=== PATIENT | male | born 1955 | race Caucasian/White ===

== ENCOUNTER 2023-06-02 20:24 | Emergency (ER) | payer MEDICARE, BC, SELFPAY ==
[2023-06-02 20:41] VITALS: BP 135/71; PULSE 66; RESP 26; TEMP 36.6; O2SAT 92; BMI 44.9
--- NOTE | 2023-06-02 21:05 | ED_ITS ---
HPI - Fall General Time Seen by Provider: 21:05 Date Seen: 06/02/23 Chief Complaint: Fall/Minor Trauma Stated Complaint: fell, R leg pain,and hip pain Time Seen by Provider: 06/02/23 20:29 Source: patient and RN notes reviewed Mode of arrival: ambulatory Limitations: no limitations History of Present Illness HPI Narrative: This 67-year-old male is coming into the ER with complaint of right leg pain after a fall down the stairs. Was going down carpeted stairs, slipped, did hit the cui and eventually landed with his right foot underneath his but, he has pain in the thigh area. He did not hit his head, no loss of consciousness. Denies any neck or back pain. He has pain in the right buttock area that does go into the thigh, has a burning-type pain above his right knee. He does feel pain in the hip area as well. Denies any numbness tingling. Has no pain in this extremity below his right knee. Denies any difficulty breathing, no chest or chest wall pain, no abdominal pain. He is not on any blood thinners. He crawled back up the stairs himself. He called to his , she called their son to help get him up. He does state he can put a little weight on the right leg. He denies any other medical reason for the fall, simply slipped on the carpeted stairs. He does not remember medications but is sure he is not on blood thinners. complaint: fall Related Data Home Medications Medication Instructions Recorded Confirmed Unobtainable 06/02/23 06/02/23 Allergies Allergy/AdvReac Type Severity Reaction Status Date / Time animal dander Allergy Intermediate Congested Verified 06/02/23 20:41 Review of Systems Status of ROS: Reports: 6 or more systems reviewed and unremarkable except as noted in History and below [facility] Social History Smoking Status: Never smoker How often do you have a drink containing alcohol: 4 or more times a week How many standard drinks containing alcohol do you have on a typical day: 1 or 2 How often do you have six or more drinks on one occasion: Never AUDIT-C Alcohol total score: 4 Non-prescribed substance use: denies use Exam Const: Vital Signs, click to edit/add: Vital Signs - 24 hr 06/02/23 20:41 Temperature 97.9 F Pulse Rate [Pulse Oximeter] 66 Respiratory Rate 26 H Blood Pressure [Ri t Upper Arm] 135/71 Pulse Oximetry 92 Oxygen Delivery Me thod Room Air 67-year-old male sitting on the edge of the bed in exam room 6, somewhat leaning with his upper body on the back of the bed. He is alert, interactive, no apparent distress. Pupils are equal round, conjugate gaze. He has slightly injected sclera but extra ocular muscles are intact. He has symmetrical facial function, normal speech. He has no palpable tenderness or visual changes on of midline cervical spine down to lumbar spine. He does not have any abrasions or traumatic change on his back. Lungs are clear, good air entry, no wheezing or crackles. CV regular rate and rhythm, no murmur, normal S1-S2 no S3-S4. Abdomen is obese but soft, does not seem to be tender. He can very slightly lift his right lower leg some, uses his left foot to start the movement, can lift it maybe 5-10 degrees at most. When I lift his leg, am able to fully place it in extension, he cannot hold it up at all. His patella still seems to be in normal position, is certainly not high riding, patellar tendon still can be felt inferiorly. He does seem to have significant effusion above the patella, do wonder if he has some of the muscle fibers still intact as is patella really does seem to be in appropriate anatomic position but there is significant suprapatellar effusion. He does not seem to have tenderness over his joint line. Does complain of some pain with rotation of his hip. Documenting provider has reviewed patient's vital signs: yes Course Course ED Course: Will obtain imaging of his pelvis, right hip femur and knee. I suspect quadriceps injury here. His patellar tendon seems to be intact, feel significant effusion above the patella on examination. He can make some slight extension but cannot hold the leg or lift the leg up really. Will look to ensure no underlying fracture. Have reviewed with them if this is a quadriceps disruption, patient would be discharged to home in knee immobilization and orthopedic outpatient follow-up. They understand that further imaging with MRI might be ordered. Would recommend that he ambulate with a walker. Will await imaging results, he will let me know there are further issues or anything else is starting to bother him. Reevaluation(s) Time of Reevaluation #1: 22:37 Reevaluation #1: Reviewed negative x-rays for fracture. Note sterile instrument technician did request to change to femur and pelvis which was agreed to. Patient most definitely has a suprapatellar effusion, patella on the right maybe just slightly lower riding when I compare it to his left on re-evaluation. He has no other new complaints at this time. Reviewed management, probable quadriceps disruption. They will be able to get a walker for him to use. We will apply a knee mobilizer at this time. Vital Signs Vital signs: Initial Vital Signs Temperature 97.9 F 06/02/23 20:41 Temperature Source Temporal Artery Scan 06/02/23 20:41 Pulse Rate 66 06/02/23 20:41 Respiratory Rate 26 H 06/02/23 20:41 Blood Pressure 135/71 06/02/23 20:41 Blood Pressure Mean 92 06/02/23 20:41 Blood Pressure Position Sitting 06/02/23 20:41 Pulse Oximetry 92 06/02/23 20:41 Oxygen Delivery Method Room Air 06/02/23 20:41 Vital Signs Temperature 97.9 F 06/02/23 20:41 Pulse Rate 66 06/02/23 20:41 Respiratory Rate 26 H 06/02/23 20:41 Blood Pressure 135/71 06/02/23 20:41 Pulse Oximetry 92 06/02/23 20:41 Oxygen Delivery Method Room Air 06/02/23 20:41 Temperature 97.9 F 06/02/23 20:41 Pulse Rate 66 06/02/23 20:41 Respiratory Rate 26 H 06/02/23 20:41 Blood Pressure 135/71 06/02/23 20:41 Pulse Oximetry 92 06/02/23 20:41 Oxygen Delivery Method Room Air 06/02/23 20:41 MDM - Fall Imaging Data XR pelvis: Attestation: I have reviewed the pertinent imaging results. Radiologist's impression: Patient: LAYLA ARNOLDMarisol Facility:?[facility] Patient ID:?[id number] Site Patient ID:?[id number]. Site :?1955 Study:?XRay Pelvis -06/02/2023 10:03:03 PM Ordering Physician:Amado Donovan Final Report: INDICATION: Fall, pelvic pain TECHNIQUE: Pelvis radiograph 1 view COMPARISON: None FINDINGS: Bone: No acute fractures or aggressive bone lesions are identified. 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 There is a linear lucency overlying the right superior pubic ramus which is likely a soft tissue Mach band. Joint: See above. The visualized sacroiliac joints are unremarkable in appearance. The pubic symphysis is normal in appearance. Soft tissue: Unremarkable. The visualized bowel gas pattern of the pelvis is unremarkable in appearance. No radiopaque foreign bodies are seen. IMPRESSION: 1. No acute osseous injuries or abnormalities are noted. Dictated by Antione Younger MD @ 06/02/2023 10:12:55 PM Dictated by: Antione Younger MD @ 06/02/2023 22:13:00 (Electronic Signature) XR femur: Attestation: I have reviewed the pertinent imaging results. Radiologist's impression: Patient: LAYLA BATISTA Facility:?[facility] Patient ID:?[id number] Site Patient ID:?[id number]. Site :?1955 Study:?XRay Extremity Right FEMUR-06/02/2023 10:03:26 PM Ordering Physician:?Ariel Donovan Final Report: INDICATION: Fall, femur pain TECHNIQUE: Femur radiograph 4 views right COMPARISON: None FINDINGS: Bone: No acute fractures or aggressive bone lesions are identified. There is a prominent osseous bulge at the anterolateral femoral head-neck junction. Joint: Moderate right hip osteoarthritis is noted. No significant joint effusion is seen. Soft tissue: Overlying fabric artifacts moderately degrade the evaluation of the soft tissues and osseous structures. Soft tissue thickening and edema seen anteriorly. There are several densities in the anterior soft tissues measuring 4-6 mm which may represent calcifications. IMPRESSIONS: 1. No acute osseous injuries or abnormalities are noted. 2. There is a prominent osseous bulge at the anterolateral femoral head-neck junction. This can predispose the patient to CAM-type femoroacetabular impingement. 3. There are several densities in the anterior soft tissues measuring 4-6 mm which may represent calcifications. Correlation with physical exam and history of trauma is recommended to exclude foreign bodies. Dictated by Antione Younger MD @ 06/02/2023 10:14:51 PM Dictated by: Antione Younger MD @ 06/02/2023 22:14:54 (Electronic Signature) Discharge Plan Discharge Clinical Impression: Injury of quadriceps muscle Fall Qualifiers: Encounter type: initial encounter Qualified Code(s): W19.XXXA - Unspecified fall, initial encounter Patient Disposition: Home, Self-Care Condition: Stable Instructions: Tendon Rupture (ED) Additional Instructions: Need to keep knee immobilizer on for stability. Use walker to ambulate. Can use Tylenol and ibuprofen per bottle directions if needed for any discomfort. Need to contact Orthopedic office tomorrow to get scheduled for follow-up, phone number is [phone]. When resting, can open up the knee immobilizer to apply ice. Prescriptions: No Action Unobtainable Follow Up/Referrals: Provider,Not a Local [Primary Care Provider] - Stand Alone Forms: [employer] Info Instructions
--- NOTE | 2023-06-02 21:11 | CRLHL7_ITS ---
For Patients: As a result of the Cures Act, medical imaging exams and procedure reports are released immediately into your electronic medical record. You may view this report before your referring provider. If you have questions, please contact your health care provider. INDICATION: Fall, femur pain TECHNIQUE: Femur radiograph 4 views right COMPARISON: None FINDINGS: Bone: No acute fractures or aggressive bone lesions are identified. There is a prominent osseous bulge at the anterolateral femoral head-neck junction. Joint: Moderate right hip osteoarthritis is noted. No significant joint effusion is seen. Soft tissue: Overlying fabric artifacts moderately degrade the evaluation of the soft tissues and osseous structures. Soft tissue thickening and edema seen anteriorly. There are several densities in the anterior soft tissues measuring 4-6 mm which may represent calcifications. IMPRESSIONS: 1. No acute osseous injuries or abnormalities are noted. 2. There is a prominent osseous bulge at the anterolateral femoral head-neck junction. This can predispose the patient to CAM-type femoroacetabular impingement. 3. There are several densities in the anterior soft tissues measuring 4-6 mm which may represent calcifications. Correlation with physical exam and history of trauma is recommended to exclude foreign bodies. Dictated by Antione Younger MD @ 06/02/2023 10:14:51 PM Dictated by: Antione Younger MD @ 06/02/2023 22:14:54 (Electronically Signed)
--- NOTE | 2023-06-02 21:11 | CRLHL7_ITS ---
For Patients: As a result of the Century Cures Act, medical imaging exams and procedure reports are released immediately into your electronic medical record. You may view this report before your referring provider. If you have questions, please contact your health care provider. INDICATION: Fall, pelvic pain TECHNIQUE: Pelvis radiograph 1 view COMPARISON: None FINDINGS: Bone: No acute fractures or aggressive bone lesions are identified. 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 There is a linear lucency overlying the right superior pubic ramus which is likely a soft tissue Mach band. Joint: See above. The visualized sacroiliac joints are unremarkable in appearance. The pubic symphysis is normal in appearance. Soft tissue: Unremarkable. The visualized bowel gas pattern of the pelvis is unremarkable in appearance. No radiopaque foreign bodies are seen. IMPRESSION: 1. No acute osseous injuries or abnormalities are noted. Dictated by Antione Younger MD @ 06/02/2023 10:12:55 PM Dictated by: Antione Younger MD @ 06/02/2023 22:13:00 (Electronically Signed)
== END 2023-06-02 22:55 | disposition home or self-care (01) ==
PROVIDERS: Emergency Provider Family Medicine
DX: S76.101A Unspecified injury of right quadriceps muscle, fascia and tendon, initial encounter (principal); W19.XXXA Unspecified fall, initial encounter
CPT/HCPCS: 29505; 72170; 73552; 99284

== ENCOUNTER 2023-06-04 09:00 | Outpatient (CLI) | payer MEDICARE, BC, SELFPAY ==
--- NOTE | 2023-06-04 09:15 | MR_ITS ---
[address] [address] Phone:?[phone] Fax:?[phone] Referring Physician Information: Paramjit Sarah M.D. [id number] [facility] [id number] Phone:?[phone] Fax:?[phone] Patient:Georgiana Toddmelquiadesmariola MarionB:?1955 Sex:?Male Phone:?[phone] [facility] MRN:?[id number] Exam Date:?06/04/2023 EXAM: MRI of the RIGHT KNEE, without contrast CLINICAL INFORMATION: Male, 67 years old, with knee pain after fall injury 06/02/2023 INDICATION: Knee pain PRIOR SURGERY: None reported. PLAIN FILMS: Radiographs 06/02/2023. COMPARISONS: No prior MRIs available. TECHNICAL INFORMATION: Using a 1.5T MR scanner and a localizing surface coil: sagittals: PD, PDFS coronals: PD, T2FS axials: PD, PDFS SEDATION: None CONTRAST: None FINDINGS: Knee joint: Effusion: Small right knee effusion. Popliteal cyst: Small Loose bodies: None. Subcutaneous and extra-articular soft tissues: Prominent prepatellar subcutaneous soft tissue edema and skin thickening with mild discrete bursitis at the level of the inferior pole of the patella measuring up to 8 mm in thickness. Ligaments: ACL: Intact ACL anteromedial and posterolateral bundles, without sprain or tear. PCL: Intact PCL, without acute or chronic injury. MCL: Intact MCL superficial and deep layers, without injury. LCL: Intact LCL, without injury. Posterolateral corner: No posterolateral corner soft tissue injury. Popliteus, biceps femoris, iliotibial band, popliteofibular ligament and lateral gastrocnemius are intact. Posteromedial corner: No posteromedial corner soft tissue injury. Semimembranosus, pes anserine tendons and posterior oblique ligament are without injury, tendinopathy or bursitis. Extensor mechanism: Patellar tendon: Intact, without tendinopathy. Quadriceps tendon: The quadriceps tendon is abnormal in appearance. There is full-thickness tearing involving the rectus femoris, vastus intermedius, vastus medialis contributions to the tendon with up to 2.3 cm retraction (sagittal series 5 image 14, coronal series 7 image 5, and axial series 4 image 9). The vastus lateralis component appears at least predominantly intact at the attachment. The distal region of tearing appears at the patellar attachment without significant distal tendon stump visualized. Tearing results in extension of intra-articular fluid into the subcutaneous tissues. Retinacula: Attenuated appearance of the medial retinaculum centrally (axial series 4 image 17), without tearing at the femoral or patellar attachment. The lateral retinaculum is intact. Fat pads: Unremarkable infrapatellar Hoffa's, quadriceps and prefemoral fat pads. Medial compartment: Medial meniscus: No articular surface, meniscosynovial junction or root tear. No displacement, extrusion or parameniscal cyst. Medial femoral condyle: No chondromalacia or osteochondral abnormality. Medial tibial plateau: No chondromalacia or osteochondral abnormality. Lateral compartment: Lateral meniscus: There is oblique undersurface and intrasubstance tearing throughout the posterior horn of the lateral meniscus over a length of approximately 2.1 cm (sagittal series 6 image 10-13). Superimposed apical free edge tearing throughout the anterior horn. Fraying and degeneration is noted involving the apical free edge of the body segment. Lateral femoral condyle: No chondromalacia or osteochondral abnormality. Lateral tibial plateau: Small region of grade II/III chondromalacia involving the central weightbearing lateral tibial plateau measuring approximately 1.1 x 0.7 cm. Patellofemoral joint: Patella: Grade IV chondromalacia of the lateral patellar facet measuring at least 2.3 x 1.9 cm. Grade 2 chondral thinning of the far inferior medial patellar facet and central midline ridge. Trochlea: Grade IV chondromalacia of the lateral trochlea measuring 2.1 x 2.1 cm with mild marrow reactive edema and osseous remodeling peripherally. Proximal tibiofibular joint: Unremarkable, without evidence of ligament sprain injury, joint effusion or adjacent marrow edema. Bones: No stress/occult fractures or other marrow edema/pathology. IMPRESSION: 1. High-grade full-thickness, near full width tearing of the quadriceps tendon as described above, with the vastus lateralis contribution appearing predominantly intact. The torn medial three quarters of the tendon is torn at the level of the patellar attachment without significant distal tendon stump present. Up to 2.3 cm proximal retraction of torn tendon fibers. 2. Oblique undersurface and intrasubstance tearing of the posterior horn lateral meniscus with apical free edge fraying and tearing along the anterior horn and body segment. 3. Advanced lateral patellofemoral osteoarthritis with moderate size regions of full-thickness and full-thickness chondral loss. 4. Mild chondromalacia of the central lateral tibial plateau. 5. Attenuation and partial tearing of the medial retinaculum centrally, with intact appearance of the patellar and femoral attachments. 6. No cruciate or collateral ligament sprain/tear. 7. Small knee joint effusion with extension into the subcutaneous tissues anterior quadriceps defect. Prominent anterior knee subcutaneous soft tissue edema and skin thickening. KME Electronically signed on 06/05/2023 8:14:00 AM by Tsering Chowdary M.D.
== END 2023-06-04 09:01 | disposition home or self-care (01) ==
LOC: MRI 09:03
PROVIDERS: PCP Family Medicine; Visit Provider Orthopaedic Surgery Sports Medicine
DX: M79.604 Pain in right leg (principal); S83.281A Other tear of lateral meniscus, current injury, right knee, initial encounter; M17.11 Unilateral primary osteoarthritis, right knee; M25.461 Effusion, right knee; M94.261 Chondromalacia, right knee
CPT/HCPCS: 73721

== ENCOUNTER 2023-06-09 09:08 | Day surgery (SDC) | payer MEDICARE, BC, SELFPAY ==
[2023-06-09] VITALS (16 sets, daily range): BP systolic 113–145; BP diastolic 62–81; PULSE 55–64; RESP 12–18; TEMP 36.1–36.8; O2SAT 91–97; BMI 38.9
--- NOTE | 2023-06-09 | CRLHL7_ITS ---
For Patients: As a result of the Cures Act, medical imaging exams and procedure reports are released immediately into your electronic medical record. You may view this report before your referring provider. If you have questions, please contact your health care provider. INDICATION: Right tendon repair. TECHNIQUE: Single spot image in the right knee submitted. 4.2 seconds fluoro time provided. FINDINGS: Surgical instruments through the right patella. Dictated by Danilo Tellez MD @ 06/10/2023 12:46:17 PM (Electronically Signed)
[2023-06-09] MEDS: LACTATED RINGERS 1000 ML 1,000 ML 100 ML IV (09:10)
--- OUTSIDE RECORDS SUMMARY | 2023-06-09 09:15 | XMS_ITS | Clinical Summary ---
Author Name Unknown Organization [facility] Address [place], [place] [address] Care Team Providers Care Neurology Professor Name Role Phone Cuca Rosales MD Primary Care Provider [facility] Unavailable Allergies Active Allergy Reactions Criticality Noted Date Comments Cats (Fur, Dander, Saliva) Rash,*Unknown,Wheezing Medium 12/11/2016 Watery and itchy eyes. Medications Medication Sig Dispensed Refills Start Date End Date Status nystatin powder (MYCOSTATIN) powderIndications:T christian cabreras Apply 1 Strip topically to affected area(s) 3 times daily. 60 g 2 09/21/2021 Active melatonin 3 mg tabletIndications:I nsomnia, unspecified type Take 2 Tablets (6 mg) by mouth once daily in the evening. 0 07/06/2022 Active acetaminophen (TYLENOL EXTRA STRGTH) 500 mg tabletIndications:S /P AVR (aortic valve replacement) Take 2 Tablets (1,000 mg) by mouth or nasogastric tube every 6 hours if needed for Pain. Max acetaminophen dose: 4000mg in 24 hrs. 0 07/08/2022 Active aspirin chewable 81 mg chewable tabletIndications:S /P AVR (aortic valve replacement) Take 1 Tablet (81 mg) by mouth or nasogastric tube once daily. 0 07/09/2022 Active metoprolol tartrate (LOPRESSOR) 25 mg tabletIndications:S /P AVR (aortic valve replacement) Take 1 Tablet (25 mg) by mouth two times daily. 180 Tablet 3 07/10/2022 Active sertraline (ZOLOFT) 50 mg tabletIndications:Lucian kim depressive disorder, single episode, moderate (HC) Take 1 Tablet (50 mg) by mouth every morning. 90 Tablet 3 07/31/2022 Active traZODone (DESYREL) 50 mg tabletIndications:I nsomnia, unspecified type TAKE 1 TO 2 TABLETS (50-100 MG) BY MOUTH AT BEDTIME 180 Tablet 3 08/14/2022 Active simvastatin (ZOCOR) 20 mg tabletIndications:H yperlipidemia, unspecified hyperlipidemia type Take 1 Tablet (20 mg) by mouth once daily. 90 Tablet 3 08/22/2022 Active buPROPion (WELLBUTRIN XL) 150 mg Extended-Release tabletIndications:Lucian kim depressive disorder, single episode, moderate (HC) TAKE ONE TABLET BY MOUTH EVERY DAY IN THE MORNING 90 Tablet 2 10/19/2022 Active triamcinolone 0.5% (ARISTOCORT) 0.5 % creamIndications:Ra sh and nonspecific skin eruption Apply topically to affected area(s) three times daily. To forearm rash three times daily until clear 15 g 0 11/01/2022 Active fluticasone (50 mcg per actuation) nasal solution (FLONASE)Indication s:Allergic rhinitis due to pollen, unspecified seasonality Inhale 1 Bowers to both nostrils once daily. 48 g 3 11/27/2022 Active hydrOXYzine pamoate (VISTARIL) 25 mg capsuleIndications: Anxiety Take 1 Capsule (25 mg) by mouth at bedtime. 100 Capsule 3 12/25/2022 Active albuterol HFA (PRO-AIR; VENTOLIN; PROVENTIL) 90 mcg/actuation inhalerIndications: Wheezing Inhale 2 Puffs by mouth every 4 hours if needed for Shortness Of Breath. 8.5 g 0 12/25/2022 Active cyclobenzaprine (FLEXERIL) 10 mg tabletIndications:B ack spasm Take 0.5 Tablets (5 mg) by mouth 2 times daily if needed for Muscle Spasm. 30 Tablet 0 02/27/2023 Active hydrocortisone 2.5% creamIndications:Sk in irritation Apply topically to affected area(s) 2 times daily if needed for Itching. Or rash 60 g 0 02/27/2023 Active clotrimazole-betame thasone cream (LOTRISONE) 1-0.05 % creamIndications:Sk in irritation Apply topically to affected area(s) two times daily. For skin irritation. 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 S/p Resection of thrombosed ulnar artery segment at the tunnel of Guyon, and reconstruction using interposed reversed venous microvascular vein graft in 2008 S/P AVR (aortic valve replacement) 06/21/2022 Overview: Aortic Valve - Torneo de Ideas INSPIRIS RESILIA Aortic Valve - 27mm Dissection of artery of upper extremity 06/17/19 23 Prediabetes 09/03/2020 Aortic stenosis due to bicuspid aortic valve 11/2020 Overview: Diagnosed on 06/2019 echocardiogram. Moderate. Ascending aorta dilatation 08/30/2020 Overview: Noted on 06/2019 echocardiogram. Personal history of colonic polyps 06/07/2014 Overview: Colonoscopy 05/2014 polyps repeat in 5 years Colonoscopy 09/2020 1 polyp, repeat in 5 years NELLA AHI-21 12/200901/22/2010 Major depressive disorder, single episode, moder ate 10/17/2009 HTN (hypertension) Overview: Updated by system to replace inactive record Hyperlipidemia Esophageal reflux Overview: Gastroesophageal Reflux Environmental allergies Overview: cats, pollens Resolved Problems Problem Noted Date Diagnosed Date Resolved Date Anticoagulation monitoring, INR range 2-3 07/11/2022 08/01/2022 MÓNICA (acute kidney injury) 06/28/2022 Embolism and 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 Ruth Repair of right knee repair torn tendons.) 06/04/2023 Orders Only [facility] Scanner 1 scan: (1-Ord) [place], RT KNEE WO CONTRAST , 06/04/2023 06/04/2023 Travel from Last 3 Months Immunizations Name Administration Dates Next Due AMB INFLUENZA, IIV4 (AGE=>6M OS) MDV (Flu Clinic Only) 03/26/2019 COVID-19 vaccine (Mayvenn-Bio NTech 30mcg/0.3mL) 12YO+ BIVALENT PF, MDV 12/25/2022 COVID-19 vaccine (Pfizer-Bio NTech 30mcg/0.3mL) PF, MDV 05/15/2021,09/19/2020,08/29/2020 Hepatitis A (Adult) 06/07/2009,04/25/2006 Hepatitis B, Unspecified 03/01/1991,09/07/1990,0 08/03/1990 Influenza A (H1N1), Inactiva amalia (Age >=3 Years) 06/07/2009 Influenza, High-dose Quadriv alent Inactivated 04/01/2023 Influenza, IIV3 (Age 6-35 mos) 02/14/2010 Influenza, IIV3 (Age >=3 years) 01/30/20 12,02/14/2010,06/07/2009,2007,04/09/2006,04/10/2005,03/22/2003,1 05/27/2001 Influenza, IIV4 02/07/2020, 8,05/08/2016,2013 Influenza, IIV4 (=>6mos) MDV 03/02/2019,03/04/20 17 Influenza, Inactivated AIIV4 (Age 65+ Years) Preserv Free 01/25/2022,05/15/2021 Pneumococcal Conj 20-valent (Prevnar 20) 08/29/2022 Pneumococcal Poly,23-Valent (Pneumovax) 10/20/2020 Td (Age >=7 Years) 04/25/2006 Td, Preservative Free (age > = 7 Years) 04/25/2006 Tdap 01/30/2012 Zoster (Shingrix-RZV, recombinant) 10/20/2020 Zoster (Zostavax-ZVL, live) 12/11/2016 Family History Medical History Relation Name Comments Good Health Brother 3 Other Brother 3 cancer- ? [place]? Good Health Brother 4 Unknown Father thinks he's in pretty good health Hyperlipidemia Mother Hypertension Mother Good Health Sister 3 Good Health Sister 4 Good Health Son 2 Relation Name Status Comments Brother 1 Alive Brother 2 Alive Brother 3 Brother 4 Father Alive Mother Alive Sister 1 Alive Sister 2 Alive Sister 3 Sister 4 Son 1 Alive Son 2 Social History Tobacco Use Types Packs/Day Years Used Date Smoking Tobacco: Some Days Cigarettes Last attempted to quit: 05/26/1973 Cigars Last attempted to quit: 05/26/1973 Passive Smoke Exposure: Past Smokeless Tobacco: Never Tobacco Cessation:Ready to Q uit: Not Asked; Counseling Given: Not Answered Passive Exposure Comments:mom and dad smoked in child boateng life Alcohol Use Standard Drinks/Week Comments Yes 2 (1 standard drink = 0.6 oz pur e alcohol) PHQ-2 Answer Date Recorded PHQ-2 TOTAL SCORE 0 10/17/2022 Social Connections Answer Date Recorded Frequency of Communication with Friends and Fami ly Not on file 09/22/2022 Financial Resource Strain Answer Date R ecorded Difficulty of Paying Living Expenses 3 09/21/2021 Difficulty of Paying Living Expenses Not on file 09/21/2021 Food Insecurity Answer Date Recorded Worried About Running Out of Food in the Last Ye ar 1 09/21/2021 Transportation Needs Answer Date Record ed Lack of Transportation (Medical) 1 09/21/2021 Housing Stability Answer Date Recorded Unable to Pay for Housing in the Last Year 1 09/21/2021 Sex and Gender Information Value Date Recorded Sex Assigned at Not on file Gender Identity Not on file Sexual Orientation Not on file Obstetrics History Last Filed Vital Signs Vital Sign Reading Time Taken Comments Blood Pressure 117/77 06/04/2023 4:30 PM SUCTION DREDGE DUMPING SUPERVISOR Pulse 71 06/04/2023 4:30 PM SUCTION DREDGE DUMPING SUPERVISOR Temperature 36.4 ??C (97.5 ??F) 11/01/2022 12:11 PM C DT Respiratory Rate 18 11/01/2022 12:11 PM CDT Oxygen Saturation 96% 06/04/2023 4:30 PM SUCTION DREDGE DUMPING SUPERVISOR Inhaled Oxygen Concentration - - Weight 126.6 kg (279 lb) 06/04/2023 4:30 PM SUCTION DREDGE DUMPING SUPERVISOR Height 180.3 cm (5' 11) 06/04/2023 4:30 PM SUCTION DREDGE DUMPING SUPERVISOR Body Mass Index 38.91 06/04/2023 4:30 PM SUCTION DREDGE DUMPING SUPERVISOR Plan of Treatment Health Maintenance Due Date Last Done Comments Zoster (shingles) series for age 50+ (3 of 3) 12/15/2020 10/20/2020, 12/11/2016 Tetanus booster 01/29/2022 01/30/2012, 1205/2005, 04/25/2006 Medicare Wellness for age 65+ 09/21/2022 09/21/2021 Depression screening for age 12+ 10/19/2023 10/18/2022, 10/16/2022, 07/26/2022, Additional history exists BMI (ht and wt on same day) for age 18+ 06/04/2024 06/04/2023, 11/01/2022, 07/10/2022, Additional history exists Colonoscopy through age 75 10/12/202510/12, 10/12/2020, 10/12/2020, Additional history exists Lipids for age 45-75 09/28/2026 09/28/2021, 08/30/2020, 03/19/2018, Additional history exists Tdap Completed 01/30/2012 Hepatitis C screening for ag e 18-79 Completed 08/30/2020 Pneumococcal series for age 65+ Completed , 10/20/2020 AAA screening age 65-74 Completed 09/28/19, 09/09/2022, 08/22/2022, Additional history exists COVID-19 vaccine series Completed 04/01/20, 12/25/2022, 05/27/2022, Additional history exists Influenza for age 65+ Completed 04/01/2023 , 01/25/2022, 05/15/2021, Additional history exists Medical Devices Implanted Type Area Media/Instructional Designer Device Identifier Shelf Expiration Date Model / Serial / Lot Valve Aortic 27mm Inspirus Resilia Tissue - [id number] Implanted:Qty: 1 on 06/21/2022 by Lauri Jeff MD at [facility] N/A: Aortic Valve Atkinson [employer] Real 02/20/2026 [id number] / [id number] / Description:No rinse per man ufacturer's instructions. Graft Vasc [id number] Vascutek Gelweave Stra - [id number] Implanted:Qty: 1 on 06/21/2022 by Lauri Jeff MD at [facility] N/A: Aorta [employer] 03/25/2025 [id number] / [id number] / [id number] Procedures Procedure Name Priority Date/Time Associated Diagnosis Comments SCAN-MRI INTERPRETATION 06/04/19 12:00 AM SUCTION DREDGE DUMPING SUPERVISOR from Last 3 Months Results * SCAN-MRI INTERPRETATION (06/04/2023 12:00 AM SUCTION DREDGE DUMPING SUPERVISOR) Anatomical Region Laterality Modality Other Scanner OTHER from Last 3 Months Advance Directives Latest Code Status on File Code Status Date Activated Date Inactivated Comments Full Code 08/22/2022 8:56 PM 08/25/2022 2:20 PM Question Answer Comments Code Status Discussion: Reviewed Preferences Code Status History Code Status Date Activated Date Inactivated Comments Full Code 06/22/2022 11:26 AM 07/08/2022 4:53 PM Question Answer Comments Code Status Discussion: Reviewed Preferences Full Code 06/21/2022 9:55 AM 06/22/2022 11:26 AM Question Answer Comments Code Status Discussion: Unable to Assess Preferences, Provider to review later Full Code 06/14/2022 11:47 AM 06/14/2022 10:35 PM Question Answer Comments Code Status Discussion: Reviewed Preferences Full Code 12/07/2008 4:49 PM 12/07/2008 8:25 PM Care Teams Neurology Professor Relationship Specialty Start Date End Date Cuca Rosales MD [address] [place] [address] PCP - General Family Practice 06/28/[address] [address] 07/08/22
[2023-06-09] MEDS: SODIUM CHLORIDE 0.9 % (FLUSH) 10 ML SYRINGE IVF (09:22)
--- NOTE | 2023-06-09 09:57 | PM.ORPRC ---
Procedure Note Date of procedure: 06/09/23 Procedure: PREOPERATIVE DIAGNOSIS: 1. Right distal quadriceps tendon rupture, closed, acute POSTOPERATIVE DIAGNOSIS: 1. Right distal quadriceps tendon rupture, closed, acute PROCEDURE: 1. Right distal quadriceps tendon open repair 2. 51783 - intraoperative fluoroscopy up to 1 hour. SURGEON: Paramjit Sarah MD. SOFTWARE RELEASE ENGINEER: Domingo De Luna PA-C - Of note, an assistant executive housekeeper was critical for this case to aid in patient positioning, tissue retraction, limb manipulation/positioning, and closure. ANESTHESIA: Spinal anesthetic IMPLANTS: Arthrex 1.7 mm Suturetape suture (x2) TOURNIQUET: 50 minutes at 300 torr EBL: 5 mL COMPLICATIONS: None evident INDICATIONS: The patient is a pleasant 67-year-old male who experienced an eccentric load to the right quadriceps muscle group. This resulted in severe pain and inability to bear weaight. Workup including history and physical exam was concerning for quadriceps rupture. An MRI was obtained and confirmed the suspicion. Surgery was recommended to restore the function of the right lower extremity. FINDINGS: The quad tendon had been completely avulsed from its insertion. Additionally, the retinaculum was split both medially and laterally to the midaxial line DESCRIPTION OF PROCEDURE: Following a thorough discussion of risks, benefits, and alternatives consent was obtained and the right knee was marked. The patient was brought to the operating room and placed supine on the operating table. Induction of anesthesia was undertaken. 3 g IV Ancef was administered within 1 hr of incision preoperatively. Proper time-out was performed identifying proper patient, site, procedure. The operative extremity was prepped and draped in the appropriate sterile fashion using ChloraPrep after the patient was positioned supine with all bony prominences well padded. A longitudinal, anterior, midline skin incision was made starting approximately 3cm proximal to the superior pole of the patella and advanced distal just beyond the inferior pole of the patella. A hematoma/hemarthrosis was immediately encountered and evacuated from the wound. The margins of the rupture were assessed and debrided of unhealthy tissue. Likewise, the proximal pole of the patella was debrided with a rongeur for the planned reapproximation site. Attention was turned to the quadriceps tendon. A 1.7 mm suture tape was utilized in a running locking Huron technique. A second suture was placed in the same fashion leaving a total of 4 tails exiting the distal quadriceps tendon stump. 3 separate beath pins were then drilled from proximal to distal through the patella localizing their position with c-arm fluoroscopic imaging in both the AP and lateral planes. After confirming the pins to be intraosseous and parallel, small longitudinal slits were made in the patellar tendon on the beath pin down to bone to ensure no tissue interposition during the tying of the sutures. The suture tails were loaded in the pins and brought distally through the patella. One limb of each tail was brought deep to the tendon. With tension on the sutures, the knee was flexed to take any creep out of the sutures., which were then tied. A #1 Stratafix PDS Stratafix was then utilized to reapproximate the retinacular disruption in a running barbed suture technique. The knee was again placed through a range of motion and the repair remained stable. A thorough irrigation was performed with normal saline. Closure was then performed with 2-0 Vicryl and 4-0 Monocryl for subcutaneous and subcuticular layers, resepectively. Dressings were applied and the patient was awoken from anesthesia after the tourniquet deflated and transferred the PACU in stable condition. PLAN: 1. Weight bear as tolerated operative extremity with the brace locked in extension. 2. Ice. 3. Twice a day aspirin 4. Analgesics PRN (e.g. acetominophen, ibuprofen, oxycodone). 5. F/U in 2 weeks for wound check
--- NOTE | 2023-06-09 09:57 | W.PM.H&PU ---
History & Physical Update History & Physical Update H&P Reviewed and patient assessed: No changes noted
[2023-06-09] MEDS: fentaNYL 100 MCG/2 ML inj IVP (10:53)
[2023-06-09] MEDS: MIDAZOLAM HCL 1 MG/ML inj IVP (10:53)
--- NOTE | 2023-06-09 10:53 | SUR.PREOP ---
TIME?OUT:?1052 PT/RN/MDA?VERIFICATION?OF?SURGICAL?SITE,?PROCEDURE,?AND?CONSENT OBTAINED?PRIOR?TO?INVASIVE?PROCEDURE.
[2023-06-09] MEDS: CEFAZOLIN 2 GM in 0.9 % SODIUM CHLORIDE Mini-bag 100 ML IVPB (11:40)
--- NOTE | 2023-06-09 13:19 | W.ANESCHARGE ---
Anesthesia Charges Start Date/Time Anesthesia Start Date: 06/09/23 Anesthesia Start Time: 11:34 Stop Date/Time Anesthesia Stop Date: 06/09/23 Anesthesia Stop Time: 13:18
--- NOTE | 2023-06-09 13:20 | W.PM.NB ---
Nerve Block Nerve Block Time Seen by Provider: 10:55 Date Seen: 06/09/23 Type of block requested by surgeon for post-operative analgesia: adductor canal Side: right Time out performed: Yes Verification of patient name: Yes Verification of date of : Yes Site marking: site marked Name of person performing procedure: Lj Continuous monitoring Was continuous monitoring of O2 sat, B/P, manager drug safety, recorded every 15 minutes?: Yes Procedure Checklist: sterile prep, needles and gloves Ultrasound guided. Images saved: Yes Medications given in 5ml increments after negative aspiration: Ropivicaine %: 0.5 mL: 20 Needle gauge: 20 Decadron (mg): 10 Precedex (mcg): 25 Patient tolerated procedure well: Yes Additional comments: Needle noted adjacent to nerve Block Charges Block Charge (with Pro Fee): Femoral Nerve Use of Ultrasound Machine for Block: Yes- US Guidance/pain block
--- NOTE | 2023-06-09 13:23 | W.ANESCHARGE ---
Anesthesia Charges Start Date/Time Anesthesia Start Date: 06/09/23 Anesthesia Start Time: 11:34 Stop Date/Time Anesthesia Stop Date: 06/09/23 Anesthesia Stop Time: 13:18
== END 2023-06-09 15:12 | disposition home or self-care (01) ==
PROVIDERS: PCP Family Medicine; Visit Provider Orthopaedic Surgery Sports Medicine
PROC: (CPT 27385; principal; 2023-06-09 11:00)
DX: S76.111A Strain of right quadriceps muscle, fascia and tendon, initial encounter (principal); G89.18 Other acute postprocedural pain
CPT/HCPCS: 27385; 01320; 01400; 64447; 73560; 76000; 76942; J0690; J1100; J2250; J2405; J2704; J2795; J3010; J7120; L1833

== ENCOUNTER 2023-06-10 18:23 | Outpatient (CLI) | payer MEDICARE, BC, SELFPAY ==
--- OUTSIDE RECORDS SUMMARY | 2023-06-13 15:37 | XMS_ITS | Clinical Summary ---
Author Name Unknown Organization [facility] Address [place], [place] [address] Care Team Providers Care Java Application Developer Name Role Phone Cuca Rosales MD Primary Care Provider [phone] [facility] Unavailable Allergies Active Allergy Reactions Criticality Noted [...] due to pollen, unspecified seasonality Inhale 1 Leblanc to both nostrils once daily. 48 g [...] valve replacement) 06/21/2022 Overview: Aortic Valve - PaeDae INSPIRIS RESILIA Aortic Valve - 27mm Dissection [...] Encounters Date Type Department Care Team Description 06/09/2023 Orders Only [facility] Scanner 1 scan: (1-Ord) [place], RT KNEE 2V, 06/09/2023 06/04/2023 4:30 PM SOIL SCIENCE TEACHER Preop Visit [facility] [address] [place] [address] Tsering Spaulding MD Pre-Op Exam (06/09/[address] [facility] [address] Ruht Repair of right knee repair torn tendons.) 06/04/2023 Orders Only [facility] Scanner 1 scan: (1-Ord) [place], RT KNEE WO CONTRAST , 06/04/2023 06/04/2023 Travel from Last 3 Months Immunizations Name Administration Dates Next Due AMB INFLUENZA, IIV4 (AGE=>6M OS) MDRomy (Flu Clinic Only) 03/26/2019 COVID-19 vaccine (Spot Runner-Bio NTech 30mcg/0.3mL) 12YO+ BIVALENT PF, MDV 12/25/2022 COVID-19 vaccine (Spot Runner-Bio NTech 30mcg/0.3mL) PF, MDV 05/15/2021,09/19/2020,08/29/2020 Hepatitis A (Adult) 06/07/2009,04/25/2006 Hepatitis B, Unspecified 03/01/1991,09/07/1990,0 08/03/1990 Influenza A (H1N1), Inactiva amalia (Age >=3 Years) 06/07/2009 Influenza, High-dose Quadriv alent Inactivated 04/01/2023 Influenza, IIV3 (Age 6-35 mos) 02/14/2010 Influenza, IIV3 (Age >=3 years) 01/30/20 12,02/14/2010,06/07/2009,2007,04/09/2006,04/10/2005,03/22/2003,1 05/27/2001 Influenza, IIV4 02/07/2020, 8,05/08/2016,2013 Influenza, IIV4 (=>6mos) MDV 03/02/2019,03/04/20 Influenza, Inactivated AIIV4 (Age 65+ Years) Preserv [...] Comments Blood Pressure 117/77 06/04/2023 4:30 PM SOIL SCIENCE TEACHER Pulse 71 06/04/2023 4:30 PM SOIL SCIENCE TEACHER Temperature 36.4 ??C (97.5 ??F) 11/01/2022 12:11 PM C DT Respiratory Rate 18 11/01/2022 12:11 PM CDT Oxygen Saturation 96% 06/04/2023 4:30 PM SOIL SCIENCE TEACHER Inhaled Oxygen Concentration - - Weight 126.6 kg (279 lb) 06/04/2023 4:30 PM SOIL SCIENCE TEACHER Height 180.3 cm (5' 11) 06/04/2023 4:30 PM SOIL SCIENCE TEACHER Body Mass Index 38.91 06/04/2023 4:30 PM SOIL SCIENCE TEACHER Plan of Treatment Health Maintenance Due Date Last Done Comments Zoster (shingles) series for age 50+ (3 of 3) 12/15/2020 10/20/2020, 12/11/2016 Tetanus booster 01/29/2022 01/30/2012, 12/05/2005, 04/25/2006 Medicare Wellness for age 65+ 09/21/2022 [...] 08/30/2020 Pneumococcal series for age 65+ Completed 3, 10/20/2020 AAA screening age 65-74 Completed 09/28/19, 09/09/2022, 08/22/2022, Additional history exists COVID-19 vaccine series Completed 04/01/20, 12/25/2022, 05/27/2022, Additional history exists Influenza for age 65+ Completed 04/01/2023 , 01/25/2022, 05/15/2021, Additional history exists Medical Devices Implanted Type Area Rubber Tire Curer Device Identifier Shelf Expiration Date Model / Serial / Lot Valve Aortic 27mm Inspirus Resilia Tissue - [id number] Implanted:Qty: 1 on 06/21/2022 by Lauri Jeff MD at [facility] N/A: Aortic Valve [employer] Real 02/20/2026 [id number] / [id number] / Description:No rinse per man ufacturer's instructions. Graft Vasc [id number] Vascutek Gelweave Stra - [id number] Implanted:Qty: 1 on 06/21/2022 by Lauri Jeff MD at [facility] N/A: Aorta [employer] 03/25/2025 [id number] / [id number] / [id number] Procedures Procedure Name Priority Date/Time Associated Diagnosis Comments SCAN-RADIOLOGY REPORT 06/09/2023 12:00 AM SOIL SCIENCE TEACHER SCAN-MRI INTERPRETATION 06/04/19 24 12:00 AM SOIL SCIENCE TEACHER from Last 3 Months Results * SCAN-RADIOLOGY REPORT (06/09/2023 12:00 AM SOIL SCIENCE TEACHER) Anatomical Region Laterality Modality Other Scanner OTHER * SCAN-MRI INTERPRETATION (06/04/2023 12:00 AM SOIL SCIENCE TEACHER) Anatomical Region Laterality Modality Other Scanner OTHER [...] 4:49 PM 12/07/2008 8:25 PM Care Teams Java Application Developer Relationship Specialty Start Date End Date Cuca Rosales MD [address] [place] [address] PCP - General Family Practice [facility]28[facility] [place] [address] 07/08/22
== END 2023-06-10 18:24 | disposition home or self-care (01) ==
LOC: AMB 06-13 15:35
PROVIDERS: PCP Family Medicine; Visit Provider Family Medicine
DX: R53.1 Weakness (principal)
CPT/HCPCS: A0998

== ENCOUNTER 2023-06-24 15:35 | Outpatient (CLI) | payer MEDICARE, BC, SELFPAY ==
--- OUTSIDE RECORDS SUMMARY | 2023-06-24 15:38 | XMS_ITS | Clinical Summary ---
Author Name Unknown Organization [employer] [facility] [employer] Address [place], [place] [address] Care Team Providers Care Steam Pan Sponger Name Role Phone Cuca Rosales MD Primary Care Provider [phone] [facility] [address], [place] Unavailable [phone] Allergies Active Allergy Reactions Criticality Noted Date Comments Cats (Fur, Dander, Saliva) Rash,*Unknown,Wheezing Medium 12/11/2016 Watery and itchy eyes. Medications Medication Sig Dispensed Refills Start Date End Date Status nystatin powder (MYCOSTATIN) powderIndications:T hcristian cabreras Apply 1 Strip topically to affected [...] due to pollen, unspecified seasonality Inhale 1 [place] to both nostrils once daily. 48 g [...] valve replacement) 06/21/2022 Overview: Aortic Valve - [employer] INSPIRIS RESILIA Aortic Valve - 27mm Dissection [...] Department Care Team Description 06/09/2023 Orders Only [facility] Scanner 1 scan: (1-Ord) [place], RT KNEE 2V, 06/09/2023 06/04/2023 4:30 PM ENDOSCOPY SUPPORT SPECIALIST Preop Visit [facility] [address] [place] [address] Tsering Spaulding MD Pre-Op Exam (06/09/23 [facility] Dr. Ruth Repair of right knee repair torn tendons.) 06/04/2023 Orders Only [facility] Scanner 1 scan: (1-Ord) [place], RT KNEE WO CONTRAST , 06/04/2023 06/04/2023 Travel from Last 3 Months Immunizations Name Administration Dates Next Due AMB INFLUENZA, IIV4 (AGE=>6M OS) MDRomy (Flu Clinic Only) 03/26/2019 COVID-19 vaccine ([employer] 30mcg/0.3mL) 12YO+ BIVALENT PF, MDV 12/25/2022 COVID-19 vaccine ([employer] 30mcg/0.3mL) PF, MDV 05/15/2021,09/19/2020,08/29/2020 Hepatitis A [...] Comments Blood Pressure 117/77 06/04/2023 4:30 PM ENDOSCOPY SUPPORT SPECIALIST Pulse 71 06/04/2023 4:30 PM ENDOSCOPY SUPPORT SPECIALIST Temperature 36.4 ??C (97.5 ??F) 11/01/2022 12:11 PM C DT Respiratory Rate 18 11/01/2022 12:11 PM CDT Oxygen Saturation 96% 06/04/2023 4:30 PM ENDOSCOPY SUPPORT SPECIALIST Inhaled Oxygen Concentration - - Weight 126.6 kg (279 lb) 06/04/2023 4:30 PM ENDOSCOPY SUPPORT SPECIALIST Height 180.3 cm (5' 11) 06/04/2023 4:30 PM ENDOSCOPY SUPPORT SPECIALIST Body Mass Index 38.91 06/04/2023 4:30 PM ENDOSCOPY SUPPORT SPECIALIST Plan of Treatment Health Maintenance Due Date [...] history exists Medical Devices Implanted Type Area Melter Supervisor Oxygen Furnace Device Identifier Shelf Expiration Date Model / Serial / Lot Valve Aortic 27mm [employer] Resilia Tissue - [id number] Implanted:Qty: 1 on 06/21/2022 by Lauri Jeff MD at [facility] N/A: Aortic Valve [employer] Real 02/20/2026 [id number] / [id number] / Description:No rinse per man ufacturer's instructions. Graft Vasc [id number] Vascutek Gelweave Stra - [id number] Implanted:Qty: 1 on 06/21/2022 by Lauri Jeff MD at [facility] N/A: Aorta [employer] 03/25/2025 [id number] / [id number] / [id number] Procedures Procedure Name Priority Date/Time Associated Diagnosis Comments SCAN-RADIOLOGY REPORT 06/09/2023 12:00 AM ENDOSCOPY SUPPORT SPECIALIST SCAN-MRI INTERPRETATION 06/04/19 24 12:00 AM ENDOSCOPY SUPPORT SPECIALIST from Last 3 Months Results * SCAN-RADIOLOGY REPORT (06/09/2023 12:00 AM ENDOSCOPY SUPPORT SPECIALIST) Anatomical Region Laterality Modality Other Scanner OTHER * SCAN-MRI INTERPRETATION (06/04/2023 12:00 AM ENDOSCOPY SUPPORT SPECIALIST) Anatomical Region Laterality Modality Other Scanner OTHER [...] 4:49 PM 12/07/2008 8:25 PM Care Teams Steam Pan Sponger Relationship Specialty Start Date End Date Cuca Rosales MD [address] [place] [address] PCP - General Family Practice 06/28/19 [facility] [place] [address] 07/08/22
--- NOTE | 2023-06-24 16:00 | CRLHL7_ITS ---
For Patients: As a result of the Century Cures Act, medical imaging exams and procedure reports are released immediately into your electronic medical record. You may view this report before your referring provider. If you have questions, please contact your health care provider. INDICATION: Leg pain and swelling. TECHNIQUE: Ultrasound venous duplex bilateral lower extremity. Compression venous exam was performed using donahue-scale, color Doppler, and spectral Doppler analysis. COMPARISON: None. FINDINGS: Deep veins: Sonographic imaging demonstrates the right and left common femoral, deep femoral, superficial femoral, popliteal, posterior tibial veins to be fully compressible with normal color Doppler blood flow. Superficial veins: Greater saphenous veins are fully compressible. No popliteal cyst. IMPRESSION: Normal bilateral lower extremity venous ultrasound, no sign of deep venous thrombosis. Dictated by Gabriel Hughes MD @ 06/24/2023 5:55:19 PM (Electronically Signed)
== END 2023-06-24 15:36 | disposition home or self-care (01) ==
LOC: US 15:36
PROVIDERS: PCP Family Medicine; Visit Provider Physician Assistant Surgical
DX: R22.43 Localized swelling, mass and lump, lower limb, bilateral (principal); M79.604 Pain in right leg; M79.605 Pain in left leg; I82.401 Acute embolism and thrombosis of unspecified deep veins of right lower extremity; Z98.890 Other specified postprocedural states
CPT/HCPCS: 93970

== ENCOUNTER 2023-10-15 10:15 | Outpatient (RCR) | payer MEDICARE, BC, SELFPAY ==
--- NOTE | 2023-07-24 13:16 | PT.OPEX ---
PT [place] Outpatient Eval PT [facility] Outpatient Eval Start: 07/24/23 07:18 Freq: Status: Active Protocol: Document 07/24/23 07:19 CHELSEA (Rec: 07/24/23 13:15 CHELSEA [id number]) E-signed By Belen Travis PT Physical Therapy Outpatient Evaluation Insurance Information Recert Due Date 10/21/23 Insurance Name Medicare B,Blue Cross/Blue Shield Medical Diagnosis RIGHT QUAD TEND RUPTURE REPAIR 06/09/23 Treating Diagnosis RIGHT KNEE PAIN M25.561 WEAKNESS R62[address] CINTHYA JOHNSON Subjective Subjective LAYLA REPORTS FALLING DOWN HIS BASEMENT FLOOR ON 06/02/23 AND HAVING IMMEDIATE PAIN. DIAGNOSTICS REVEALED A QUAD TENDON RUPTURE AND SURGERY PERFORMED ON 06/09/23. HE HAS RECENTLY STARTED USING AN NMES MACHINE FOR MUSCLE RE-ED 20MIN BID AND FEELS THAT HE HAS GREAT SYMPTOM MGMT. HE SAW DR. JOHNSON THIS WEEK AND GIVEN CLEARANCE TO BEGIN KNEE FLEX TO TOLERANCE AND OPENING HIS BRACE WHEN SEATED TO TOLERANCE. HE STATES, IT'S ACTUALLY FEELING REALLY GOOD. I HAVEN'T HAD TO MUCH TROUBLE THIS WHOLE TIME. HE IS EXCITED ABOUT THE ABILITY TO WALK W/O HIS BRACE IN THE NEAR FUTURE. I KNOW I HAVE TO BE STRONGER AND I SURE DON'T WANT TO MESS IT UP. Pain Comments AT REST 1/10 W/ACTIVE KNEE FLEX 2-3/10 ANTERIOR KNEE WITH LATERAL STRETCH SENSATION Date of Last Physician Visit 07/22/23 Date of Surgery (If applicable) 06/09/23 Current Work Status Retired Occupation [employer]IRED [employer] AND [employer] Preferred Name LAYLA Precautions Treatment Precautions/Contraindications 07/24/23: KNEE FLEX AND QUAD STRENGTHENING TO TOLERANCE. BRACE TO BE WORN UNTIL GOOD QUAD CONTROL. BRACE LOCKED AT 0DEGREES EXT UNTIL THIS HAPPENS AND CAN UNLOCK FOR SITTING TO TOLERANCE Weight Bearing Status Weight Bear as Tolerated Therapy Limitations/Systems Review Not Limited Objective Other/Pertinent Objective RIGHT KNEE AROM IN SUPINE 0-0- 72 QUAD LAG W/O BRACE LATERAL RETINACULUM AND DISTAL ITB TTT TX: QS X 10 W/ESTM (10/10SETTING) SUPINE TKE 15 W/ESTIM (10/10 SETTING) SUPINE SLR W/BRACE AND ESTM X 10 SUPINE LATERAL LEG RAISE X 10 PRONE LEG RAISE X 10 SIDELYING ADD LEG RAISE X 10 SEATED KNEE EXT W/ESTIM X 10 ( 10 SETTING) SEATED MARCHING X 10 NEXT VISIT: STS (HIGH SEAT) STDG BHR STDG HIP ABD STDG HP EXT STDG KNEE FLEX STDG MARCHING WEIGHT SHIFT Assessment Assessment/Impression PATIENT IS A 67 YO MALE REFERRED BY DR. JOHNSON S/P RIGHT QUAD TENDON RUPTURE/ REPAIR (06/09/23) TO EVAL AND TX; PMHX INCLUDES BUT NOT LIMITED TO OPEN HEART SURGERY X 2 FOR VALVE REPLACEMENT AND AORTA REPAIR W/INFECTION 2022, HTN, HLD, H/O LEFT RTC REPAIR, RIGHT ULNAR ARTERY REPAIR/RECON FOREARM, SEASONAL ALLERGIES, DEPRESSION. PATIENT IS WEARING HIS BRACE OUTSIDE HIS PANTS WITH GREAT ALIGNMENT LOCKED AT 0 DEGREES EXT. HIS LAST F/U W/DR. JOHNSON ON 07/22/23 WENT WELL WITH INSTRUCTION TO BEGIN AROM TO TOLERANCE, STRENGTHENING TO TOLERANCE, AND WEAR BRACE WHEN WALKING LOCKED AT 0 UNTIL QUAD ARE STRONGER AND HAVE MORE CONTROL, ABLE TO UNLOCK BRACE WHEN SEATED TO TOLERANCE IN REGARD TO KNEE FLEX. TODAY HE PERFORMED THE INITIAL STRENGTHENING AND ROM (SEE ABOVE) WITH NO REPORTS OF PAIN BUT RATHER A STRETCH ABOUT THE LATERAL KNEE AND DISTAL ITB. WE DISCUSSED SCHEDULING FOR THE UP COMING VISIT OF 30 MIN AND TO BE READY WITH ESTIM ON WHEN HE ARRIVES IN ORDER TO OPTIMIZE OUR TIME. HE HAS GREAT SYMPTOM MGMT REPORTING VERY LITTLE OVER THE COURSE OF HIS RECOVERY AND IS INSTRUCTED TO USE ICE PRN/POST TREATMENT TO ASSIST WITH INTERMITTENT PAIN/EDEMA. PATIENT VERBALIZED UNDERSTANDING TO ALL SKILLED INSTRUCTION AND AGREEABLE TO POC AND FREQ. Primary Functional Limitations WALKING STDG STAIRS TRANSFERS ADL'S Plan of Care Rehabilitation Potential Good Physical Therapy Goals 1. DECREASE R/L KNEE PAIN TO < /3/10 WITH ADL'S AND PROGRESSION OF PHYSICAL THERAPY OVER THE NEXT 4-6 WEEKS 2. IMPROVE ROM OF R KNEE TO 0- 0-120 IN SUPINE (OR GREATER) TO RETURN TO FUNCTIONAL ROM AND IMPROVE GAIT MECHANICS OVER THE NEXT 6-8 WEEKS 3. IMPROVE R KNEE/LE FUNCTIONAL MOBILITY AND FUNCTIONAL STRENGTH TO RETURN TO INDEPENDENT TRANSFERS WITH EASE, EXTENDED STANDING AND WALKING FOR ADL'S, HOUSEHOLD ACTIVITIES AND IMPROVED GAIT MECHANICS OVER THE NEXT 8-10 WEEKS. 4. INDEPENDENT HEP FOR PROGRESSION TOWARD THE ABOVE GOALS, ONGOING SELF MGMT OF SYMPTOMS (PAIN/SWELLING/ETC) AND RETURN TO ALL PEER/FAMILY CENTERED ACTIVITIES IN 12- 14WEEKS Coordination/Communication With Referral Source Treatment Plan/Direct Interventions Electrical Stimulation,Gait Training,Ice/Cold/ Vasopneumatic,Joint Mobilization,Manual Therapy, Neuromuscular Re-ed,Self-Care/ Home Management,Therapeutic Activities,Therapeutic Exercises Frequency/Duration 1-2X/WK FOR 12 WEEKS Patient Will Be Discharged From Therapy Completion of LTG(s), Independently Progressing Evaluation Billing Untimed Code Treatment Minutes 15 PT Eval No Charge No Complexity Moderate Certification Information Initial Certification Date 07/24/23 Ending Certification Date 10/21/23 Provider Signature Shows Agreement With POC & Medical Necessity Physician Signature & Date Requested Please Sign/Date Here Physician Comment/Change : Physician NPI Number #
== END 2023-10-22 15:32 | disposition home or self-care (01) ==
PROVIDERS: PCP Family Medicine; Visit Provider Orthopaedic Surgery Sports Medicine
DX: Z98.890 Other specified postprocedural states (principal); Z51.89 Encounter for other specified aftercare
CPT/HCPCS: 97110; 97162

== ENCOUNTER 2025-01-10 10:45 | Outpatient (RCR) | payer MEDICARE, BC, SELFPAY | END 2025-05-10 23:59 | disposition home or self-care (01) | PROVIDERS: PCP Family Medicine; Visit Provider Family Medicine | DX: M54.50 Low back pain, unspecified (principal); Z51.89 Encounter for other specified aftercare | CPT/HCPCS: 97110; 97140; 97162 ==

== ENCOUNTER 2025-01-27 01:54 | Emergency (ER) | payer MEDICARE, BC, SELFPAY ==
[2025-01-27] VITALS (7 sets, daily range): BP systolic 131–155; BP diastolic 69–88; PULSE 60–67; RESP 14–18; TEMP 36.8; O2SAT 90–94; BMI 34.8
--- OUTSIDE RECORDS SUMMARY | 2025-01-27 01:56 | XMS_ITS | Clinical Summary ---
Author Organization [facility] Address [address] [place] [id number] Care Team Providers Care Senior Art Director Name Role Phone Cuca Rosales MD Primary Care Provider [facility] [place] Unavailable Allergies Active Allergy Reactions Criticality Noted Date Comments Cats (Fur, Dander, Saliva) Rash,*Unknown,Wheezing Medium 12/11/2016 Watery and itchy eyes. Medications melatonin 3 mg tabletIndications :Insomnia, unspecified type Take 2 Tablets (6 mg) by mouth once daily in the evening. 0 07/06/19 23 Active acetaminophen (TYLENOL EXTRA STRGTH) 500 mg tabletIndications :S/P AVR (aortic valve replacement) Take 2 Tablets (1,000 mg) by mouth or nasogastric tube every 6 hours if needed for Pain. Max acetaminophen dose: 4000mg in 24 hrs. 0 07/08/19 23 Active aspirin chewable 81 mg chewable tabletIndications :S/P AVR (aortic valve replacement) Take 1 Tablet (81 mg) by mouth or nasogastric tube once daily. 0 07/09/19 23 Active albuterol HFA (PRO-AIR; VENTOLIN; PROVENTIL) 90 mcg/actuation inhalerIndication s:Wheezing Inhale 2 Puffs by mouth every 4 hours if needed for Shortness Of Breath. 8.5 g 2 09/04/19 24 Active nystatin powder (Nyamyc) powderIndications :Tinea cruris Apply topically to affected area(s) 2 times daily if needed (Groin rash, itching). 60 g 2 09/04/19 24 Active simethicone chewable (MYLANTA GAS RELIEF; GAS X) 80 mg chewable tabletIndications :Abdominal distension Chew 1 Tablet (80 mg) by mouth 4 times daily if needed for Flatulence or GI Upset. Max dose: 500 mg per 24 hrs 30 Tablet 10/23/19 24 Active fluticasone (50 mcg per actuation) nasal solution (FLONASE)Indicati ons:Allergic rhinitis due to pollen, unspecified seasonality SPRAY ONE SPRAY INTO EACH NOSTRIL ONCE DAILY 48 mL 1 04/10/20 24 Active traZODone 50 mg tabletIndications :Insomnia, unspecified type Take 1-2 Tablets (50-100 mg) by mouth at bedtime. 186 Tablet 3 09/25/19 25 Active simvastatin 20 mg tabletIndications :Hyperlipidemia, unspecified hyperlipidemia type Take 1 Tablet (20 mg) by mouth once daily. 93 Tablet 3 09/25/19 25 Active sertraline 100 mg tabletIndications :Major depressive disorder, single episode, moderate (HC) Take 1 Tablet (100 mg) by mouth once daily in the morning. 93 Tablet 3 09/25/19 25 Active metoprolol tartrate 25 mg tabletIndications :S/P AVR (aortic valve replacement) Take 1 Tablet (25 mg) by mouth two times daily. 186 Tablet 3 09/25/19 25 Active buPROPion 150 mg Extended-Release tabletIndications :Major depressive disorder, single episode, moderate (HC) Take 1 Tablet (150 mg) by mouth once daily in the morning. 93 Tablet 3 09/25/19 25 Active cyclobenzaprine 10 mg tabletIndications :Back spasm Take 0.5 Tablets (5 mg) by mouth 2 times daily if needed for Muscle Spasm. 30 Tablet 2 09/25/19 25 Active clotrimazole 1 % creamIndications: Tinea cruris Apply topically to affected area(s) two times daily. 45 g 3 09/25/19 25 Active hydrOXYzine pamoate 25 mg capsuleIndication s:Anxiety TAKE ONE CAPSULE BY MOUTH AT BEDTIME 100 Capsule 1 10/02/19 25 Active blood-glucose meterIndications: Type 2 diabetes mellitus without complication, without long-term current use of insulin (HC) As directed. Dispense meter covered by pts insurance. 1 Each 12/09/19 25 Active lancetsIndication s:Type 2 diabetes mellitus without complication, without long-term current use of insulin (HC) As directed. Test 1 times per day. 100 Each 12/09/19 25 Active blood sugar diagnostic (Blood Glucose Test) stripIndications: Type 2 diabetes mellitus without complication, without long-term current use of insulin (HC) Test 1 times per day. 100 Each 12/09/19 25 Active warfarin (COUMADIN) 5 mg tabletIndications :Hypoattenuated leaflet thickening (HALT) Take 1 Tablet (5 mg) by mouth once daily. OR DIRECTED BY INR NURSE. TAKE AT NIGHT 90 Tablet 01/04/20 25 Active warfarin 5 mg tabletIndications :Hypoattenuated leaflet thickening (HALT) Take 1 Tablet (5 mg) by mouth once daily. OR DIRECTED BY INR NURSE. 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 Moderate. Ascending aorta dilatation 08/30/2020 Overview (08/30/2020): Noted on 06/2019 echocardiogram. Personal history of colonic polyps 06/07/2014 Overview (10/13/2020): Colonoscopy 05/2014 polyps repeat in 5 years Colonoscopy 09/2020 1 polyp, repeat in 5 years NELLA AHI-21 12/200901/22/2010 Major depressive disorder, single episode, moder ate 10/17/2009 HTN (hypertension) Overview (08/08/2009): Updated by system to replace inactive record Hyperlipidemia Esophageal reflux Overview (12/05/2008): Gastroesophageal Reflux Environmental allergies Overview (12/05/2008): cats, pollens Resolved Problems Problem Noted Date Diagnosed Date Resolved Date Anticoagulation monitoring, INR range 2-3 07/11/2022 08/01/2022 MÓNICA (acute kidney injury) 06/28/2022 Embolism and thrombosis of a rteries of upper extremity 12/07/2008 08/01/2021 Major depression, single episode 09/28/2018 Bicuspid aortic valve 2022 Encounters Date Type Department Care Team Description 01/25/2025 10:30 AM CDT Office Visit [facility] [address] [place] [address] Ronald Gómez, [facility] Mental Health Intake; Mental Health Consultants Visit 01/25/2025 Travel 01/11/2025 Orders Only [facility] Scanner 1 scan: (1-Ord) [employer], 01/11/2025 01/06/2025 10:30 AM CDT Office Visit [facility] [address] [place] [address] Ronald Gómez, [employer]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 Mental Health Consultants Visit 01/05/2025 12:45 PM CDT Orders Only [facility] [address] [place] [address] [place], [place] Lab 01/05/2025 Anticoagulation (warfarin) [address] [address] Sandip Wills MD Anticoagulation (INR-2.5) 01/05/2025 Travel 01/03/[address] [address] Sandip Wills MD Medication Management 12/29/2024 10:00 AM CDT Patient Outreach [address] [phone] Diabetes (DM education- new dx ) 12/29/2024 Travel 12/13/2024 10:30 AM CDT Office Visit [facility] [address] [place] [address] Ronald Gómez [facility] Mental Health Consultants Visit 12/13/2024 Travel 12/08/2024 10:50 AM CDT Office Visit [facility] [address] [place] [address] Cuca Rosales MD Follow Up (patient states he is still having pain on the right side now. /Patient would also like a referral for technical specialist.) 12/08/2024 10:30 AM CDT Orders Only [facility] [address] [place] [address] [place] [place] [facility] 12/08/2024 Anticoagulation (warfarin) [address] [address] Sandip Wills MD Anticoagulation (INR-2.5) 12/08/2024 Travel 11/30/2024 10:30 AM CDT Office Visit [facility] [address] [place] [address] Ronald Gómez [facility] Mental Health Consultants Visit 11/29/2024 Travel 11/25/2024 Anticoagulation (warfarin) [address] [place] [address] Sandip Wills MD Anticoagulation (INR= 2.6) 11/24/2024 1:30 PM CDT Orders Only [facility] [address] [facility] [place] [address] Lab[place] [facility] 11/24/2024 Travel 11/17/2024 11:00 AM CDT Orders Only [facility] [address] [place] [address] Lab[facility] [place] [facility] 11/17/2024 Anticoagulation (warfarin) [address] [address] Sandip Wills MD Anticoagulation (INR-3.4) 11/17/2024 Travel 11/15/2024 10:30 AM CDT Office Visit [address] [address] [facility] 11/14/2024 Travel 11/11/2024 Anticoagulation (warfarin) [address] [address] Sandip Wills MD Anticoagulation (INR-2.6) 11/10/2024 Travel 11/09/[address] [address] Sandip Wills MD Anticoagulation (ANTIBIOTICS ) 11/09/[address] [address] Sandip Wills MD Medication Management 11/08/2024 4:00 PM CDT Ancillary Procedure [address] [address] 11/08/2024 2:45 PM CDT Office Visit [facility] [address] [place] [address] Cuca Rosales MD Pain (couple weeks patient has had pain predominantly on the left side. Abdominal pain is all over like it jumps around per patient. The back pain is lower back he state it is muscular./Patient did have kidney stone removal December 24, 2023) 11/08/2024 Travel 11/02/2024 10:36 AM CDT - 11/02/2024 11:59 PM CDT Hospital Encounter [facility] [address] [place] [address] Sandip Wills MD Hypoattenuated leaflet thickening (HALT) 11/02/2024 Anticoagulation (warfarin) [address] [address] Sandip Wills MD Anticoagulation (INR 2.6) 11/02/2024 Travel 10/27/2024 Anticoagulation (warfarin) [address] [address] Sandip Wills MD Anticoagulation (INR-2.2) from Last 3 Months Immunizations Immunization Administration Dates Next Due AMB INFLUENZA, IIV4 (AGE=>6M OS) MDV (Flu Clinic Only) 03/26/2019 COVID-19 VACCINE SPIKEVAX (M ODERNA 50MCG/0.5ML) 12YO+ PFS 09/24/2024,09/22/2023 COVID-19 vaccine (Quik.io-Bio NTech 30mcg/0.3mL) 12YO+ BIVALENT PF, MDV 12/25/2022 COVID-19 vaccine (Pfizer-Bio NTech 30mcg/0.3mL) PF, MDV 05/15/2021,09/19/2020,08/29/2020 Hepatitis A (Adult) 06/07/2009,04/25/2006 Hepatitis B, Unspecified 03/01/1991,09/07/1990,0 08/03/1990 Influenza A (H1N1), Inactiva amalia (Age >=3 Years) 06/07/2009 Influenza Virus, Unspecified 03/03/2018 Influenza, High-dose Inactivated 03/09/2024 Influenza, High-dose Quadriv alent Inactivated 04/01/2023 Influenza, [...] Years) 04/25/2006 Tdap 01/30/2012 Zoster (Shingrix-RZV, recombinant) 03/23/2024, Zoster (Zostavax-ZVL, live) 12/11/2016 Family History Medical [...] Types Packs/Day Years Used Date Smoking Tobacco: Former Cigarettes 1 12 1989 Passive Smoke Exposure: Past Smokeless Tobacco: Never Tobacco Cessation:Counseling Given: Yes Comments:Smokes an occasional Cigar in the summer Passive Exposure Comments:mom and dad smoked in child boateng life Alcohol Use Standard Drinks/Week Comments Yes 5 (1 standard drink = 0.6 oz pur e alcohol) social PHQ-2 Answer Date Recorded PHQ-2 TOTAL SCORE 0 01/06/2025 Social Connections Answer Date Recorded Do you often feel lonely or isolated from those around you? 0 09/23/2024 Financial Resource Strain Answer Date R ecorded Difficulty of Paying Living Expenses 3 09/23/2024 Difficulty of Paying Living Expenses Not on file 09/23/2024 Food Insecurity Answer Date Recorded Do you worry your food will run out before you are able to buy more? 1 09/23/2024 Transportation Needs Answer Date Record ed Does lack of transportation keep you from medica l appointments? 1 09/23/2024 Does lack of transportation keep you from work, meetings or getting things that you need? 1 09/23/2024 Housing Stability Answer Date Recorded What is your housing situation today? 1 09/23/2024 Interpersonal Safety Answer Date Record ed Are you being hit, kicked, p ushed or yelled at (see row info)? No 10/23/2023 Interpersonal Safety Abuse 12 - 18 Not on file 10/23/2023 Interpersonal Safety Ambulatory Vulnerability No t on file 10/23/2023 Utilities Answer Date Recorded Do you have trouble paying f or utilities (for example, heat, electricity, water, phone)? 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 Not on file Not on file Obstetrics History Last Filed Vital Signs Vital Sign Reading Time Taken Comments Blood Pressure 129/67 12/08/2024 10:48 AM CDT Pulse 54 12/08/2024 10:48 AM CDT Temperature 36.7 C (98 F) 11/08/2024 2:45 PM CDT Respiratory Rate 18 12/24/2023 3:29 PM CDT Oxygen Saturation 94% 12/08/2024 10: 48 AM CDT Inhaled Oxygen Concentration - - Weight 120.1 kg (264 lb 12.8 oz) 2024 10:48 AM CDT Height 181 cm (5' 11.26) 09/24/2024 10 :59 AM CDT Body Mass Index 36.66 09/24/2024 10:59 AM CDT Plan of Treatment Upcoming Encounters Date Type Department Care Team (Late st Contact Info) Description 01/31/2025 9:40 AM CDT Orders Only [facility] [address] [facility] [address] [place] [address] 01/31/2025 10:00 AM CDT Ancillary Procedure [facility] [address] [facility] [address] [place] [address] 02/02/2025 1:30 PM CDT Orders Only [facility] [address] [place] [address] [place] 03/14/2025 10:25 AM CDT Office Visit [facility] [address] [place] [address] Cuca Rosales MD [address] [place] [address] Health Maintenance Due Date Last Done Comments Tetanus booster 01/29/2022 01/30/2012, 1205/2005, 04/25/2006 Influenza Vaccine (#1) 2025 , 01/25/2022, 05/15/2021, Additional history exists BMI (ht and wt on same day) for age 18+ 09/24/2025 09/24/2024, 10/02/2023, 09/04/2023, Additional history exists Medicare Wellness for age 65+ 09/25/2025, 09/04/2023, 09/21/2021 Colonoscopy through age 75 10/12/202510/12, 10/12/2020, 10/12/2020, Additional history exists Depression screening for age 12+ 01/06/2026 01/06/2025, 11/15/2024, 09/24/2024, Additional history exists Lipids for age 45-75 09/24/2029 09/24/2024, 09/04/2023, 09/28/2021, Additional history exists RSV vaccine for adults or (1 - 1-dose 75+ series) 10/27/2030 Hepatitis B series for 19+ Completed 03/01, 09/07/1990, 08/03/1990 Hepatitis C screening for ag e 18-79 Completed 08/30/2020 Pneumococcal series for age 50+ Completed 3, 10/20/2020 Zoster (shingles) series for age 50+ Completed 03/23/2024, 10/20/2020, 12/11/2016 COVID-19 vaccine series Completed 09/25/19, 03/09/2024, 09/22/2023, Additional history exists AAA screening age 65-74 Completed 11/09/19, 10/23/2023, 09/27/2022, Additional history exists Medical Devices Implanted Type Area Transitions Manager Rn Device Identifier Shelf Expiration Date Model / Serial / Lot Valve Aortic 27mm Inspirus Resilia Tissue - [id number] Implanted:Qty: 1 on 06/21/2022 by Lauri Jeff MD at [facility] N/A: Aortic Valve [employer] 02/20/2026 [id number] / [id number] / Description:No rinse per man ufacturer's instructions. Graft Vasc [id number] Vascutek Gelweave Stra - [id number] Implanted:Qty: 1 on 06/21/2022 by Lauri Jeff MD at [facility] N/A: Aorta Watchup 03/25/2025 [id number] / [id number] / [id number] Stent Uret 2lst21fd Percuflex Hydroplus - [id number] Implanted:Qty: 1 on 12/24/2023 by Ruben Nicholson MD at [facility] Left: Ureter C Urology 08/03/2026 [id number] / / [id number] Procedures Procedure Name Priority Date/Time Associated Diagnosis Comments SCAN-EYE EXAM 01/11/2025 12:00 AM CDT INR,POCT Routine 01/05/2025 12:55 PM CDT Hypoattenuated leaflet thickening (HALT) PROTIME-INR Routine 12/08/2024 10:26 AM CDT Hypoattenuated leaflet thickening (HALT) PROTIME-INR Routine 11/24/2024 1:33 PM CDT Hypoattenuated leaflet thickening (HALT) PROTIME-INR Routine 11/17/2024 11:10 AM CDT Hypoattenuated leaflet thickening (HALT) PROTIME-INR Routine 11/10/2024 2:41 PM CDT Hypoattenuated leaflet thickening (HALT) CT ABDOMEN PELVIS W STAT 11/08/2024 4 :03 PM CDT Abdominal pain, LUQ (left upper quadrant) Left flank pain PROTIME-INR Today 11/02/2024 10:43 AM CDT Hypoattenuated leaflet thickening (HALT) LIPID PANEL W REFLEX MEASURED LDL Routine 09/24/2024 12:00 PM CDT Hyperlipidemia, unspecified hyperlipidemia type COLONOSCOPY SCREENING Routine 10/12/2020 8:00 AM CDT History of colon polyps ANTI HCV Routine 08/30/2020 10:35 AM CDT Encounter for hepatitis C screening test for low risk patient from Last 3 Months or Most Recently Relevant to Health Maintenance Results * SCAN-EYE EXAM (01/11/2025 12:00 AM CDT) us Scanner OTHER Final Result * (ABNORMAL) INR,POCT (01/05/2025 12:55 PM CDT) INR 2.5(H) ratio [facility] Comment: INRs >2.9 may be falsely elevated in patients receiving either unfractionated Heparin or Low Molecular Weight Heparin. Follow up testing in a hospital laboratory may be helpful if clinically indicated. INR results of > or = 5.0 should be verified using the standard venipuncture procedure. Reference Range 0.9-1.1 Moderate-intensity Warfarin Therapy 2.0-3.0 Higher-intensity Warfarin Therapy 3.0-4.0 PROTHROMBIN TIMEP 29.8(H) 10.5 - 13.1 sec [facility] Comment: Point of care fingerstick Prothrombin Time/INR results may vary from venous Prothrombin Time/INR methodologies. Any results exhibiting inconsistency with the patient's clinical status should be repeated using a venous Prothrombin Time/INR method. Blood BLOOD SPECIMEN / Unknown 01/05/2025 12:55 PM CDT 01/05/2025 12:55 PM CDT Sandip Wills MD LABORATORY Final Re sult Performing Organization Address [facility]/ZIP Co de Phone Number [facility] [address] [place] [address], [place] [phone] [facility] [address] [place] [address] * (ABNORMAL) PROTIME-INR (12/08/2024 10:26 AM CDT) Only the most recent of5 resultswithin the time period is included. INR 2.5(H) <1.3 12/08/2024 3:05 PM CDT [facility] PROTIME 29.4(H) 10.6 - 12.4 sec 12/08/2024 3:05 PM CDT [facility] Blood BLOOD SPECIMEN / Unknown [facility] / Unknown 12/08/2024 10:26 AM CDT 12/08/2024 10:26 AM CDT Narrative [facility] - 12/08/2024 3:05 PM CDT Therapeutic Range 2.0-3.0 for most anticoagulated patients 2.5-3.5 or 4.0 for high risk patients The INR is only used for patients on stable oral anticoagulant therapy. It makes no significant contribution to the diagnosis or treatment of patients whose Protime is prolonged for other reasons. INR results are increased when heparin levels exceed 1.0 U/mL, which corresponds to an aPTT >125 seconds if the patient is on UFH. Sandip Wills MD HEMATOLOGY Final Re sult Performing Organization Address City/[facility]/ZIP Co de Phone Number [facility] [address] [place] [address], [place] * CT ABDOMEN PELVIS W (11/08/2024 4:03 PM CDT) Anatomical Region Laterality Modality Abdomen, Pelvis, AORTA, LIVER, SPLEEN Computed Tomography 11/08/2024 4:22 PM CDT Impressions 11/08/2024 4:22 PM CDT 1. Colonic diverticulosis with possible very mild adjacent pericolonic stranding about a few sigmoid colon diverticula. This may represent an early acute diverticulitis 2. Similar small duodenal diverticulum, now containing fecalized material. No evidence of inflammation or obstruction. 3. No renal or ureteral calculi. No hydronephrosis. Unchanged prominent left renal cysts. Please note that all CT scans at this facility use dose modulation, iterative reconstruction, and/or weight-based dosing when appropriate to reduce radiation dose to as low as reasonably achievable. Dictated by Sparkle Fair MD @ 11/08/2024 4:22:59 PM (Electronically Signed) Narrative 11/08/2024 4:22 PM CDT For Patients: As a result of the Century Cures Act, medical imaging exams and procedure reports are released immediately into your electronic medical record. You may view this report before your referring provider. If you have questions, please contact your health care provider. INDICATION: Left upper quadrant and left flank abdominal pain TECHNIQUE: CT abdomen and pelvis acquired with 100 cc Omnipaque 350 IV contrast. COMPARISON: CT abdomen and pelvis 10/23/2023 FINDINGS: Lower chest: Right lower lobe pulmonary cyst measuring 7 mm, unchanged. Liver: Unremarkable. Normal in size and attenuation. No suspicious masses. Gallbladder and bile ducts: Unremarkable. No stones or inflammation. No biliary dilatation. Pancreas: Unremarkable. No mass or inflammation. Spleen: Unremarkable. Normal in size. No masses. Adrenal glands: Unremarkable. No nodules. Kidneys: Largely unchanged simple left renal cysts and additional bilateral subcentimeter hypoattenuating lesions too small to accurately characterize but likely also benign cysts. No suspicious masses, stones, or hydronephrosis. GI tract: Colonic diverticulosis. There may be trace pericolonic stranding adjacent to a few sigmoid diverticula (6/120). Similar small duodenal diverticulum containing fecalized material. The small and large bowel are normal in caliber. The appendix is not seen and may be surgically absent Vasculature: Abdominal aorta is normal in caliber. Mesenteric arteries are patent. Lymph nodes: No lymphadenopathy. Peritoneum/Abdominal Wall: Small right fat containing inguinal hernia. No sign of mass or infiltration. No free air or significant free fluid. Pelvis: Unremarkable. Bones: Multilevel degenerative changes of the imaged spine. Moderate hip degenerative change. Procedure Note Sparkle Fair MD - 11/08/2024 For Patients: As a result of the 21st Century Cures Act, medical imagingexams and procedure reports are released immediately into your electronicmedical record. You may view this report before your referring provider.If you have questions, please contact your health care provider. INDICATION: Left upper quadrant and left flank abdominal pain TECHNIQUE: CT abdomen and pelvis acquired with 100 cc Omnipaque 350 IV contrast. COMPARISON: CT abdomen and pelvis 10/23/2023 FINDINGS: Lower chest: Right lower lobe pulmonary cyst measuring 7 mm, unchanged. Liver: Unremarkable. Normal in size and attenuation. No suspicious masses. Gallbladder and bile ducts: Unremarkable. No stones or inflammation. Nobiliary dilatation. Pancreas: Unremarkable. No mass or inflammation. Spleen: Unremarkable. Normal in size. No masses. Adrenal glands: Unremarkable. No nodules. Kidneys: Largely unchanged simple left renal cysts and additionalbilateral subcentimeter hypoattenuating lesions too small to accuratelycharacterize but likely also benign cysts. No suspicious masses, stones,or hydronephrosis. GI tract: Colonic diverticulosis. There may be trace pericolonic strandingadjacent to a few sigmoid diverticula (6/120). Similar small duodenaldiverticulum containing fecalized material. The small and large bowel arenormal in caliber. The appendix is not seen and may be surgically absent Vasculature: Abdominal aorta is normal in caliber. Mesenteric arteries arepatent. Lymph nodes: No lymphadenopathy. Peritoneum/Abdominal Wall: Small right fat containing inguinal hernia. Nosign of mass or infiltration. No free air or significant free fluid. Pelvis: Unremarkable. Bones: Multilevel degenerative changes of the imaged spine. Moderate hipdegenerative change. IMPRESSION: 1. Colonic diverticulosis with possible very mild adjacent pericolonicstranding about a few sigmoid colon diverticula. This may represent anearly acute diverticulitis 2. Similar small duodenal diverticulum, now containing fecalized material.No evidence of inflammation or obstruction. 3. No renal or ureteral calculi. No hydronephrosis. Unchanged prominentleft renal cysts. Please note that all CT scans at this facility use dose modulation,iterative reconstruction, and/or weight-based dosing when appropriate toreduce radiation dose to as low as reasonably achievable. Dictated by Sparkle Fair MD @ 11/08/2024 4:22:59 PM (Electronically Signed) Cuca Rosales MD CT Final Resul t * (ABNORMAL) LIPID PANEL W REFLEX MEASURED LDL (09/24/2024 12:00 PM CDT) CHOLESTEROL, TOTAL 137 <200 mg/dL [facility] HDL CHOLESTEROL 34(L) > OR = 40 mg/dL [facility] TRIGLYCERIDES 193(H) <150 mg/dL [facility] LDL-CHOLESTEROL 74 mg/dL (calc) [facility] Comment: Reference range: <100 Desirable range <100 mg/dL for primary prevention; <70 mg/dL for patients with CHD or diabetic patients with > or = 2 CHD risk factors. LDL-C is now calculated using the Reji-Pepe calculation, which is a validated novel method providing better accuracy than the Friedewald equation in the estimation of LDL-C. Reji SS et al. SUKHDEV. 2013;310(19): 0151-0946 (http://education.Minderest/faq/GGE220) CHOL/HDLC RATIO 4.0 <5.0 (calc) [facility] NON HDL CHOLESTEROL 103 <130 mg/dL (calc) [facility] Comment: For patients with diabetes plus 1 major ASCVD risk factor, treating to a non-HDL-C goal of <100 mg/dL (LDL-C of <70 mg/dL) is considered a therapeutic option. Blood BLOOD SPECIMEN / Unknown 09/24/2024 12:00 PM CDT 09/24/2024 12:01 PM CDT Cuca Rosales MD CHEMISTRY Final Resul t [employer] [facility] [address] [place] [address], [place] [phone] [facility] [address] [place] [address] * COLONOSCOPY (10/12/2020 7:45 AM CDT) 10/12/2020 7:45 AM CDT Narrative Transcriptions Reji Ahuja MD - 10/12/2020 9:13 AM CDT Patient Name: Jayden Blakely Procedure Date: 10/12/2020 Gender: Male Date of : 1955 Admit Type: Outpatient Procedure: Colonoscopy Proceduralist: Reji Ahuja MD , Liss Braxton (Nurse) Referring MD: uCca Rosales Indications/Pre-Op Diagnosis: Surveillance: Personal history ofadenomatous polyps on last colonoscopy > 5 years ago,Last colonoscopy: May 2014 Medications: Fentanyl 100 micrograms IV, Midazolam 4 mgIV, The level of sedation administered wasmoderate Procedure Description: The patient had risks, benefits and alternatives explained to andgave informed consent. The patient had a stable cardiopulmonary status and judged an adequate candidate for conscious sedation. The Colonoscope was passed through the anus and advanced to thececum, identified by appendiceal orifice and ileocecal valve. Thecolonoscopy was performed without difficulty. The patient tolerated the procedure well. The quality of the bowel preparation was good. The ileocecal valve, appendiceal orifice, and rectum were photographed. Complications: No immediate complications. Estimated Blood Loss & Specimen: Estimated blood loss: none. Specimen collected - Yes and sent to Laboratory Findings: The perianal and digital rectal examinations were normal. A 3 mm polyp was found in the ileocecal valve/proximal asceningcolon. The polyp was sessile. The polyp was removed with a cold snare. Resection and retrieval were complete. The exam was otherwise without abnormality on direct and retroflexion views. Impressions/Post-Op Diagnosis: - One 3 mm polyp at the ileocecal valve/proximal ascending colon, removed with a cold snare. Resected and retrieved. - The examination was otherwise normal on direct and retroflexionviews. Recommendation: - Patient has a contact number available for emergencies. The signsand symptoms of potential delayed complications were discussed with the patient. Return to normal activities tomorrow. Written discharge instructions were provided to the patient. - Resume previous diet. - Continue present medications. - Await pathology results. - Repeat colonoscopy date to be determined after pending pathology results are reviewed for surveillance. Moderate Sedation: Moderate (conscious) sedation was administered by the endoscopy nurse and supervised by the endoscopist. The following parameters were monitored: oxygen saturation, heart rate, respiratory rate, blood pressure, adequacy of pulmonary ventilation and reponse to care. Please refer to the patient's medical record flowsheets and nursing notes for moderate sedation details. Total physician intraservice time was 22 minutes. Reji Ahuja MD 10/12/2020 9:13:13 AM This report has been signed electronically. Note Initiated On: 10/12/2020 7:45 AM Procedure Code(s): --- Professional --- 33651, Colonoscopy, flexible; with removalof tumor(s), polyp(s), or other lesion(s) bysnare technique Diagnosis Code(s): --- Professional --- Z86.010, Personal history of colonicpolyps K63.5, Polyp of colon CPT copyright 2019 [employer]. All rights reserved. The codes documented in this report are preliminary and upon clinical research manager reviewmay be revised to meet current compliance requirements. Scope In: 8:49:40 AM Scope Withdrawal Time 0 hours 10 minutes 12 seconds Scope Out: 9:07:01 AM us Reji Ahuja MD PROCEDURE ORD Final Res ult * ANTI HCV (08/30/2020 10:35 AM CDT) HEPATITIS C ANTIBODY Non-React maryann Non-React maryann 08/30/2020 6:24 PM CDT [facility] [employer] [facility] Comment:Antibodies to HCV no t detected; does not exclude the possibility of exposure to HCV. Blood BLOOD SPECIMEN / Unknown Butterfly / Unknown 08/30/2020 10:35 AM CDT 08/30/2020 10:35 AM CDT us Cuca Rosales MD SEND OUTS Final Resul t [facility] [address] [place] [address], from Last 3 Months or Most Recently Relevant to Health Maintenance Insurance [employer] [place] BLUE MR PB ONLY MEDICARE PART B HB ONLY [employer] [place] BLUE HB ONLY MEDICARE PART A HB ONLY HC MEDICARE PPS [employer] [place] BLUE HB ONLY KIDNEY ACQUISITION CTR HB ONLY STATE AUTO STATE AUTO STATE [facility] [employer] [place] BLUE MR PB ONLY Advance Directives * Full Code (Latest Code Status on File) Date Activated Date Inactivated Comments 12/24/2023 10:01 AM 12/24/2023 5:49 PM Should be d iscussed pre operatively with anesthesia or surgeon Question Answer Comments Code Status Discussion: Not Discussed * Full Code Date Activated Date Inactivated Comments 08/22/2022 8:56 PM 08/25/2022 2:20 PM Question Answer Comments Code Status Discussion: Reviewed Preferences * Full Code Date Activated Date Inactivated Comments 06/22/2022 11:26 AM 07/08/2022 4:53 PM Question Answer Comments Code Status Discussion: Reviewed Preferences * Full Code Date Activated Date Inactivated Comments 06/21/2022 9:55 AM 06/22/2022 11:26 AM Question Answer Comments Code Status Discussion: Unable to Assess Preferences, Provider to review later * Full Code Date Activated Date Inactivated Comments 06/14/2022 11:47 AM 06/14/2022 10:35 PM Question Answer Comments Code Status Discussion: Reviewed Preferences Care Teams Senior Art Director Relationship Specialty Start Date End Date Cuca Rosales MD [address] [place] [address] PCP - General Family Practice 06/28/19 [place] [id number] [address] [address] 07/08/22
--- NOTE | 2025-01-27 02:17 | ED.GENADULT ---
HPI - General Adult General Time Seen by Provider: 02:18 Date Seen: 01/27/25 Chief complaint: Back Injury/Pain Stated complaint: back pain Time Seen by Provider: 01/27/25 02:17 Source: patient and family () Mode of arrival: ambulatory History of Present Illness HPI narrative: Jayden is a 69-year-old male who presents to the emergency department for evaluation of back pain. Patient c/o of back pain that started this evening after supper around 1830. Patient states that he tried to go to bed however woke up around 12 30 due to the pain and was unable to get comfortable. Patient describes the pain is a constant severe pain that has worsened throughout the night. Patient denies any radiation of the pain. Patient reports he does have some pain with taking deep breath, some shortness of breath, and now has a little bit of discomfort in his epigastric region. Patient states he tried taking Tylenol and Flexeril with no improvement of symptoms. Patient denies any recent trauma, no falls. Patient does report that approximately 3-4 days ago he was outside doing yard work which is more than he typically does. Patient reports history of kidney stones requiring intervention as well as significant cardiac history and clots. Patient is currently on anticoagulation with warfarin. Patient denies any fever, chills, nausea, vomiting, dysuria, hematuria, no other complaints. Related Data Home Medications ?Medication ?Instructions ?Recorded ?Confirmed albuterol sulfate 90 mcg/actuation 2 puff inhalation Q6H PRN 06/03/23 03/14/24 aerosol inhaler aspirin 81 mg tablet,delayed 81 mg PO QDAY 06/03/23 03/14/24 release bupropion HCl 150 mg 24 hr tablet, 150 mg PO QAM 06/03/23 03/14/24 extended release clotrimazole-betamethasone 1 1 applic topical BID 06/03/23 03/14/24 %-0.05 % topical cream cyclobenzaprine 10 mg tablet 10 mg PO QPM 06/03/23 03/14/24 fluticasone propionate 50 1 spray intranasal DAILY 06/03/23 03/14/24 mcg/actuation nasal spray,suspension hydrocortisone 2.5 % topical cream 1 applic topical BID 06/03/23 03/14/24 hydroxyzine HCl 25 mg tablet 25 mg PO QHS 06/03/23 03/14/24 metoprolol tartrate 25 mg tablet 25 mg PO BID 06/03/23 03/14/24 nystatin 100,000 unit/gram topical 1 applic topical TID 06/03/23 03/14/24 powder ([facility]) sertraline 50 mg tablet 50 mg PO DAILY 06/03/23 03/14/24 simvastatin 20 mg tablet 20 mg PO QPM 06/03/23 03/14/24 trazodone 50 mg tablet 100 mg PO QPM PRN 06/03/23 03/14/24 triamcinolone acetonide 0.5 % 1 applic topical QDAY 06/03/23 03/14/24 topical cream melatonin 3 mg capsule 6 mg PO QHS 06/06/23 03/14/24 Previous Rx's ?Medication ?Instructions ?Recorded oxycodone 5 mg capsule 5 mg PO Q8H PRN pain #7 caps 01/27/25 oxycodone 5 mg capsule 5 mg PO Q8H PRN pain #7 caps 01/27/25 Allergies Allergy/AdvReac Type Severity Reaction Status Date / Time animal dander Allergy Severe Congested Verified 03/14/24 11:37 pollen extracts Allergy Mild Verified 03/14/24 11:37 Review of Systems Narrative: Past medical history, past surgical history, medications, allergies, family history, and social history were reviewed with the patient. No additional pertinent items. A medically appropriate review of systems was performed with pertinent positives and negatives noted in HPI, all other systems negative. [facility] Medical History Major depressive disorder ?F32.9 - Major depressive disorder, single episode, unspecified (ICD-10) GERD (gastroesophageal reflux disease) ?K21.9 - Gastro-esophageal reflux disease without esophagitis (ICD-10) Hyperlipidemia ?E78.5 - Hyperlipidemia, unspecified (ICD-10) Hypertension ?I10 - Essential (primary) hypertension (ICD-10) Intra-abdominal free air of unknown etiology ?K66.8 - Other specified disorders of peritoneum (ICD-10) Paroxysmal atrial fibrillation ?I48.0 - Paroxysmal atrial fibrillation (ICD-10) Dissection of artery of upper extremity ?I77.76 - Dissection of artery of upper extremity (ICD-10) Ascending aorta dilatation ?I77.810 - Thoracic aortic ectasia (ICD-10) Aortic stenosis due to bicuspid aortic valve ?Q23.0 - Congenital stenosis of aortic valve (ICD-10) ?Q23.1 - Congenital insufficiency of aortic valve (ICD-10) NELLA (obstructive sleep apnea) ?G47.33 - Obstructive sleep apnea (adult) (pediatric) (ICD-10) Indigestion ?K30 - Functional dyspepsia (ICD-10) Encounter for laboratory testing for severe acute respiratory syndrome coronavirus 2 (SARS-CoV-2) ?Z20.822 - Contact with and (suspected) exposure to COVID-19 (ICD-10) Degenerative disc disease, cervical ?M50.30 - Other cervical disc degeneration, unspecified cervical region (ICD-10) Tear of left biceps muscle ?S46.212A - Strain of muscle, fascia and tendon of other parts of biceps, left arm, initial encounter (ICD-10) Arthritis of left acromioclavicular joint ?M19.012 - Primary osteoarthritis, left shoulder (ICD-10) Rotator cuff tear, left ?M75.102 - Unspecified rotator cuff tear or rupture of left shoulder, not specified as traumatic (ICD-10) Surgical History History of surgery on lower extremity (06/09/23) ?Z98.890 - Other specified postprocedural states (ICD-10) History of open heart surgery ?Z98.890 - Other specified postprocedural states (ICD-10) Surgical aftercare, circulatory system (~2009) ?Z48.812 - Encounter for surgical aftercare following surgery on the circulatory system (ICD-10) Hx of appendectomy ?Z90.49 - Acquired absence of other specified parts of digestive tract (ICD-10) History of arthroscopy of left shoulder (03/01/20) ?Z98.890 - Other specified postprocedural states (ICD-10) Social History Narrative: -[place] Smoking Status: Former smoker What tobacco products do you use: cigarettes Smoking quit date/years: >15 years ago Do you use any of these nicotine containing products: None Second hand tobacco smoke exposure: No Non-prescribed substance use: denies use Caffeine: Yes Exam Narrative: Exam Narrative: General: Afebrile, in distress 2/2 to pain HEENT: Normocephalic, atraumatic, conjunctiva normal. MMM Neck: non-tender, supple Cardio: regular rate. regular rhythm Resp: Normal work of breathing, mild respiratory distress, lungs clear bilaterally, no wheezing, rhonchi, rales Chest/Back: no visual signs of trauma, +midline lower thoracic, upper lumbar TTP, +left CVA tenderness and left upper paraspinal TTP Abdomen: soft, non distension, mild tenderness, no rebound, no guarding, no peritoneal signs Neuro: alert and fully oriented. CN II-XII grossly intact. Grossly normal strength and sensation in all extremities. MSK: no deformities. Normal range of motion Integumentary/Skin: no rash visualized, normal color Psych: normal affect, normal behavior Const: Vital Signs, click to edit/add: Vital Signs - 24 hr 01/27/25 02:05 01/27/25 02:46 01/27/25 03:19 Temperature 98.2 F 98.3 F Pulse Rate 67 Pulse Rate [Pulse Oximeter] 66 Respiratory Rate 18 18 Blood Pressure 154/88 H Blood Pressure [Ri ght Upper Arm] 155/83 H Pulse Oximetry 94 94 92 Oxygen Delivery Me thod Room Air 01/27/25 03:32 Temperature Pulse Rate 64 Pulse Rate [Pulse Oximeter] Respiratory Rate 16 Blood Pressure 135/69 Blood Pressure [Ri ght Upper Arm] Pulse Oximetry 90 Oxygen Delivery Me thod Course Vital Signs Vital signs: Initial Vital Signs Temperature 98.2 F 01/27/25 02:05 Temperature Source Temporal Artery Scan 01/27/25 02:05 Pulse Rate 66 01/27/25 02:05 Respiratory Rate 18 01/27/25 02:05 Blood Pressure 155/83 H 01/27/25 02:05 Blood Pressure Mean 107 H 01/27/25 02:05 Blood Pressure Position Sitting 01/27/25 02:05 Pulse Oximetry 94 01/27/25 02:05 Oxygen Delivery Method Room Air 01/27/25 02:05 Vital Signs Temperature 98.2 F 01/27/25 02:05 Pulse Rate 66 01/27/25 02:05 Respiratory Rate 18 01/27/25 02:05 Blood Pressure 155/83 H 01/27/25 02:05 Pulse Oximetry 94 01/27/25 02:05 Oxygen Delivery Method Room Air 01/27/25 02:05 Temperature 98.3 F 01/27/25 03:19 Pulse Rate 64 01/27/25 03:32 Respiratory Rate 16 01/27/25 03:32 Blood Pressure 135/69 01/27/25 03:32 Pulse Oximetry 90 01/27/25 03:32 Oxygen Delivery Method Room Air 01/27/25 02:05 Medications Administered Medications: Discontinued Medications Generic Name Dose Route Start Last Admin Trade Name Channing PRN Reason Stop Dose Admin Acetaminophen 1,000 mg 01/27/25 03:57 01/27/25 04:02 Acetaminophen 500 Mg Tablet PO 01/27/25 03:58 1,000 mg ONCE ONE Administration Hydromorphone HCl 1 mg 01/27/25 02:44 01/27/25 03:20 Hydromorphone 0.5 Mg/0.5 Ml Inj IVP 01/27/25 02:45 1 mg ONCE ONE Administration Hydromorphone HCl 0.5 mg 01/27/25 03:57 01/27/25 04:02 Hydromorphone 0.5 Mg/0.5 Ml Inj IVP 01/27/25 03:58 0.5 mg ONCE ONE Administration Lidocaine 1 patch 01/27/25 03:57 01/27/25 04:02 Lidocaine 5% Patch TRANSDERMA 01/27/25 03:58 1 patch ONCE ONE Administration Protocol Medical Decision Making MDM Narrative Medical decision making narrative: Jayden is a 69-year-old male who has a past medical history of ascending aortic dilation status post repair in bicuspid aortic valve status post replacement, thrombus on his aortic valve currently on chronic anticoagulation with warfarin, hypertension, diabetes, coronary artery disease, NELLA, obesity, depression who presents to the emergency department for evaluation of back pain. On arrival patient is nontoxic appearing, afebrile, in distress secondary to pain. Patient hypertensive upon arrival 155/83, heart rate 66, oxygen 94% on room air. Differential diagnosis is broad and includes musculoskeletal versus nephrolithiasis versus pyelonephritis versus pancreatitis versus fracture versus ACS versus dissection versus PE versus pneumonia among others. Upon arrival comprehensive labs performed, EKG, and CT imaging. Patient was treated with IV Dilaudid for pain. I reviewed EKG which demonstrates normal sinus rhythm with sinus arrhythmia with a ventricular rate of 63 beats per minute, normal axis, QTC 437, no acute ischemic change, no prior EKG to compare to Comprehensive labs remarkable for no leukocytosis white blood cell count 8.02, hemoglobin 15.3, no acute metabolic or electrolyte abnormality, no transaminitis, normal lipase, normal/negative troponin. INR 2.42 urinalysis with no evidence of acute infection, positive for blood, 0 red blood cells. I personally reviewed and interpreted CT of the chest, abdomen pelvis which demonstrates no evidence of acute aortic syndrome, colonic diverticulosis with no evidence of diverticulitis. Dilation of the main pulmonary artery which may be seen in setting of pulmonary hypertension. Low suspicion for PE is patient is currently on chronic anticoagulation with warfarin and INR is 2.42. Prominent left renal cyst, no evidence of hydronephrosis, hydroureter, urinary calculi. On re-evaluation patient does report improvement of symptoms and is able to get up and stand. It does appear that pain is worse with moving and going from lying to sitting so I suspect this could be musculoskeletal. I did consider an offer observation admission however patient states he does feel comfortable with discharge home. At this time plan for supportive care with Tylenol, will send patient with a short course of oxycodone, and encouraged him close outpatient follow-up with his primary care providers. Strict return precautions discussed if worsening pain, weakness, paresthesias, chest pain, shortness of breath, worsening symptoms. Patient and spouse understand and agrees with the plan. Medical Records Medical records reviewed: Yes I reviewed the patient's medical records Lab Data Lab results reviewed: Yes I reviewed the patient's lab results Labs: Lab Results 01/27/25 01/27/25 Range/Units 02:40 02:44 WBC 8.02 (4.50-11.00) K/uL RBC 4.84 (4.30-5.90) m/uL Hgb 15.3 (13.5-17.5) gm/dL Hct 45.2 (37.0-53.0) % MCV 93 (80-100) fL MCH 32 (26-34) pg MCHC 34 (32-36) gm/dL RDW Coeff of Leah 13.3 (11.5-15.5) % Plt Count 155 (140-440) K/uL Neut % (Auto) 57.6 (42.0-72.0) % Lymph % (Auto) 26.8 (20-44) % [place] % (Auto) 9.0 (0.0-11.0) % Eos % (Auto) 6.0 (0.0-7.0) % Baso % (Auto) 0.5 (0.0-3.0) % Neut # (Auto) 4.62 (1.7-7.0) K/uL Lymph # (Auto) 2.15 (0.90-2.90) K/uL [place] # (Auto) 0.70 (0.00-0.90) K/UL Eos # (Auto) 0.48 (0.00-0.50) K/uL Baso # (Auto) 0.04 (0.00-0.30) K/uL Abs Immat Gran (auto) 0.01 (0.00-0.30) K/uL Imm/Tot Granulo (auto) 0.1 % INR 2.42 H (0.91-1.10) Sodium 140 (135-149) mmol/L Potassium 3.9 (3.6-5.1) mmol/L Chloride 108 (96-114) mmol/L Carbon Dioxide 27 (20-32) mmol/L Anion Gap 5 L (7-15) mEq/L BUN 14 (7-30) mg/dL Creatinine 1.1 (0.5-1.5) mg/dL Estimated Creat Clear 71.63 Estimated GFR 73 ml/min Glucose 140 H (60-115) mg/dL Calcium 8.4 (8.4-10.6) mg/dL Total Bilirubin 0.4 (0.1-1.5) mg/dL AST 33 (12-35) U/L ALT 24 (4-50) U/L Alkaline Phosphatase 100 (40-150) U/L Troponin I < 0.01 (0.01-0.04) ng/mL Total Protein 6.9 (6.0-8.3) g/dL Albumin 4.0 (3.3-5.0) g/dL Lipase 105 (23-300) U/L Urine Color Yellow (Yellow) Urine Appearance Clear (Clear) Urine pH 5.5 (5.0-8.5) Ur Specific [place] >= 1.030 (1.000-1.030) Urine Protein 1+ A (Negative) Urine Glucose (UA) Negative (Negative) Urine Ketones Negative (Negative) Urine Blood 2+ A (Negative) Urine Nitrite Negative (Negative) Urine Bilirubin Negative (Negative) Urine Urobilinogen 0.2 (0.2-1.0) Ur Leukocyte Esterase Negative (Negative) Urine RBC 0-2 (0-2) Urine WBC 0-2 (0-5) Ur Squamous Epith Cells None (None-Few) Urine Bacteria None (None) POC Creatinine 1.3 (0.6-1.3) mg/dl Discharge Plan Discharge Clinical Impression: Back pain Patient Disposition: Home, Self-Care Condition: Improved Additional Instructions: Please follow-up with your primary care provider in the next 2-3 days for further evaluation and follow-up. Please call to schedule appointment. Please take Tylenol 1000 mg every 6 hours as needed for pain. You may take oxycodone 1 tablet every 6 hours as needed for severe pain. Please return to the emergency department if you develop severe chest pain, shortness of breath, abdominal pain, weakness, tingling/numbness, or any worsening symptoms. It was a pleasure taking care of you today. We hope you feel better soon. Prescriptions: New oxycodone 5 mg capsule 5 mg PO Q8H PRN (Reason: pain) Qty: 7 0RF oxycodone 5 mg capsule 5 mg PO Q8H PRN (Reason: pain) Qty: 7 0RF No Action cyclobenzaprine 10 mg tablet 10 mg PO QPM hydrocortisone 2.5 % cream 1 applic topical BID clotrimazole-betamethasone 1-0.05 % cream 1 applic topical BID hydroxyzine HCl 25 mg tablet 25 mg PO QHS albuterol sulfate 90 mcg/actuation HFA aerosol inhaler 2 puff inhalation Q6H PRN fluticasone propionate 50 mcg/actuation spray,suspension 1 spray intranasal DAILY triamcinolone acetonide 0.5 % cream 1 applic topical QDAY bupropion HCl 150 mg tablet extended release 24 hr 150 mg PO QAM simvastatin 20 mg tablet 20 mg PO QPM trazodone 50 mg tablet 100 mg PO QPM PRN sertraline 50 mg tablet 50 mg PO DAILY metoprolol tartrate 25 mg tablet 25 mg PO BID aspirin 81 mg tablet,delayed release (DR/EC) 81 mg PO QDAY nystatin [Nyamyc] 100,000 unit/gram powder 1 applic topical TID melatonin 3 mg capsule 6 mg PO QHS Follow Up/Referrals: Cuca Rosales MD [Primary Care Provider, Obstetrics] Stand Alone Forms: [facility] Info Instructions
[2025-01-27 02:49] LABS: Creatinine, Point-of-Care* 1.3 mg/dl (0.6-1.3)
--- NOTE | 2025-01-27 02:49 | CRLHL7_ITS ---
For Patients: As a result of the 21st Century Cures Act, medical imaging exams and procedure reports are released immediately into your electronic medical record. You may view this report before your referring provider. If you have questions, please contact your health care provider. INDICATION: Chest pain, back pain, and abdominal pain. TECHNIQUE: CT chest without contrast and CT chest, abdomen and pelvis acquired with 100 cc Omnipaque 350 IV contrast, dissection protocol. Multiplanar reformats performed including 3D MIP reconstructions. COMPARISON: CT abdomen and pelvis 11/08/2024. FINDINGS: CHEST: Cardiovascular structures: The unenhanced images demonstrate no evidence of aortic intramural thrombus. Thoracic aorta is normal in caliber without evidence of dissection. Postoperative changes of ascending aorta. No cardiomegaly or pericardial effusion. Main pulmonary artery dilated to 3.4 cm. Mediastinum and pa: No suspicious lymphadenopathy. Lungs and pleura: No focal consolidation. No pleural effusion or pneumothorax. Patent central airways. Scattered calcified granulomas. Chest wall and axilla: No suspicious chest wall mass or fluid collection. No axillary lymphadenopathy. Bones: No acute abnormality. ABDOMEN AND PELVIS: Liver: Unremarkable. Gallbladder and bile ducts: Unremarkable. Pancreas: Unremarkable. Spleen: Unremarkable. Adrenal glands: Unremarkable. Kidneys: Prominent left renal cysts, largest at the left upper pole measuring up to 7.9 cm. Subcentimeter right renal hypodensities are too small to characterize on this exam but likely represent additional cysts. No hydronephrosis or hydroureter. No urinary calculi appreciated. GI tract: No bowel obstruction. Duodenal diverticulum. Colonic diverticulosis without convincing evidence of acute diverticulitis. No CT evidence of acute appendicitis. No suspicious bowel wall thickening. Vascular structures: Abdominal aorta is normal in caliber without evidence of dissection. Grossly patent arterial vasculature with scattered atherosclerotic calcifications. Lymph nodes: No suspicious lymphadenopathy. Miscellaneous: No ascites or pneumoperitoneum. Small fat containing right inguinal hernia. Pelvic Organs: Normal bladder. Unremarkable prostate and seminal vesicles. Bones: No acute abnormality. IMPRESSION: 1. No CT evidence of acute aortic syndrome. 2. Colonic diverticulosis without convincing CT evidence of acute diverticulitis. 3. Dilatation of the main pulmonary artery which may be seen in the setting of pulmonary hypertension. Please note that all CT scans at this facility use dose modulation, iterative reconstruction, and/or weight-based dosing when appropriate to reduce radiation dose to as low as reasonably achievable. Dictated by Aj Sanders MD @ 01/27/2025 3:26:27 AM (Electronically Signed)
[2025-01-27 02:59] LABS: Appearance Urine Clear (Clear)
[2025-01-27 03:07] LABS: Hematocrit* 45.2 % (37.0-53.0); Hemoglobin* 15.3 gm/dL (13.5-17.5); Immature Granulocytes Abs Auto 0.01 K/uL (0.00-0.30); Immature Granulocytes Pct Auto 0.1 %; Lymphocytes Absolute Auto 2.15 K/uL (0.90-2.90); Mean Corpuscular HGB Conc 34 gm/dL (32-36); Mean Corpuscular Hemoglobin 32 pg (26-34); Mean Corpuscular Volume 93 fL (80-100); RDW Coefficient of Variation % 13.3 % (11.5-15.5); Red Blood Count* 4.84 m/uL (4.30-5.90); White Blood Count* 8.02 K/uL (4.50-11.00)
[2025-01-27 03:08] LABS: Albumin* 4.0 g/dL (3.3-5.0); Chloride* 108 mmol/L (96-114); Potassium* 3.9 mmol/L (3.6-5.1); Sodium* 140 mmol/L (135-149)
[2025-01-27 03:11] LABS: Alanine Aminotransferase* 24 U/L (4-50); Alkaline Phosphatase* 100 U/L (40-150); Anion Gap 5 mEq/L (7-15); Aspartate Amino Transferase* 33 U/L (12-35); Bilirubin Total* 0.4 mg/dL (0.1-1.5); Blood Urea Nitrogen* 14 mg/dL (7-30); Calcium* 8.4 mg/dL (8.4-10.6); Carbon Dioxide* 27 mmol/L (20-32); Creatinine* 1.1 mg/dL (0.5-1.5); Est. Creatinine Clearance* 71.63; Estimated Glomerular Filt Rate 73 ml/min; Glucose* 140 mg/dL (60-115); Total Protein* 6.9 g/dL (6.0-8.3)
[2025-01-27 03:25] LABS: Slide Review Reflex No
[2025-01-27 03:28] LABS: INR 2.42 (0.91-1.10); Prothrombin Time 27.5 Seconds
[2025-01-27] MEDS: ACETAMINOPHEN 500 MG TABLET 1000 MG PO (04:02)
[2025-01-27] MEDS: LIDOCAINE 5% PATCH 1 PATCH TRANSDERMA (04:02)
== END 2025-01-27 04:51 | disposition home or self-care (01) ==
PROVIDERS: Emergency Provider Emergency Medicine; PCP Family Medicine
DX: M54.9 Dorsalgia, unspecified (principal); N28.1 Cyst of kidney, acquired; Z95.0 Presence of cardiac pacemaker; Z79.01 Long term (current) use of anticoagulants
CPT/HCPCS: 36415; 71275; 74174; 80053; 81001; 82565; 83690; 84484; 85025; 85610; 93005; 94761; 96374; 96375; 99284; 99285; A9270; J1171; Q9967